=== PATIENT | male | born 1955 | race Caucasian/White ===

== ENCOUNTER 2018-03-20 05:18 | Inpatient (IN) ==
[2018-03-19 10:39] LABS: Basophils % 0.2 % (0.0-0.8); Eosinophils # 0.1 10*3/uL (0.0-0.87); Eosinophils % 1.2 % (0.00-10.9); Hematocrit 38.8 VOL% (42.0-52.0); Hemoglobin 13.5 GM/DL (14.0-18.0); Immature Granulocytes % 0.4 %; Immature Granulocytes Absolute 0.03 #; Lymphocytes # 2.5 10*3/uL (1.4-4.0); Lymphocytes % 31.4 % (21.2-54.2); Mean Corpuscular HGB Conc 34.8 GM/DL (32-36); Mean Corpuscular Hemoglobin 31 PG (27-34); Mean Corpuscular Volume 88.8 FL (87-102); Mean Platelet Volume 8.7 FL (9.6-12.0); Monocytes # 0.6 10*3/uL (0.11-0.8); Monocytes % 7.8 % (1.7-12.7); Neutrophils # 4.8 10*3/uL (1.4-7.4); Platelet Count 352 T/CUMM (130-400); Red Blood Count 4.37 MC/CUMM (3.8-5.5); Red Cell Distribution Width 12.8 % (9.3-17.3); White Blood Count 8.1 T/CUMM (4-12)
[2018-03-19 10:49] LABS: PT Patient Result 10.4 SECS; Partial Thromboplastin Time 26.1 SECS (0-40)
[2018-03-19 11:10] LABS: Apearance,Urine CLEAR (Clear); Bilirubin,Urine Negative (Negative); Blood, Urine Negative (Negative); Glucose,Urine (UA) Negative (Negative); Ketones,Urine Negative (Negative); Mucus,Urine Occasional /LPF (Occasional); Nitrite,Urine Negative (Negative); Protein,Urine Negative; RBC,Urine 1 /HPF (0-4); Urine Color Yellow (Yellow); Urine Specific Gravity 1.019 (1.001-1.035); Urine Urobilinogen < 2.0 EU/DL (0.2-1.0); WBC,Urine <1 /HPF (0-6)
[2018-03-19 11:20] LABS: Calcium 9.6 MG/DL (8.5-10.1); Osmolality,Calculated 277.4 MOS/KG (273-304); Potassium 4.6 MMOL/L (3.5-5.1)
[~2018-03-20 05:18] MED LIST: MIDAZOLAM 10 MG/2 ML VIAL ONE; PAPAVERINE 60 MG/2 ML VIAL ONE; SODIUM CHLORIDE 0.9% 1,000 ML IV PRN; SUFentanil 250 MCG/5 ML AMP ONE; TISSUE ADHESIVE 1 EACH APPLICATOR TOP ONE; VANCOMYCIN 1,000 MG VIAL ONE
[2018-03-20] MEDS ORDERED: CEFUROXIME INJ 1,500 MG in SYRINGE 1 EACH IV ONE (06:00)
[2018-03-20] MEDS ORDERED: PANTOPRAZOLE 40 MG TABLET PO ONE (06:06)
[2018-03-20] MEDS ORDERED: CEFUROXIME 1,500 MG VIAL ONE ×2 (06:07→19:31)
[2018-03-20] MEDS: LACTATED RINGERS 1,000 ML IV SCH (06:14)
[2018-03-20] MEDS ORDERED: DIAZEPAM 5 MG TABLET PO ONE (06:30)
[2018-03-20] MEDS ORDERED: NITROPRUSSIDE 50 MG/2 ML VIAL ONE (07:34)
[2018-03-20] MEDS ORDERED: CALCIUM CHLORIDE 1,000 MG/10 ML SYRINGE IV ONE (07:35)
[2018-03-20] MEDS ORDERED: POTASSIUM CHLORIDE RIDER 100 ML IV ONE (07:35)
[2018-03-20] MEDS ORDERED: PHENYLEPHRINE DRIP 40 MG/250 ML PREMIX IV ONE (07:35)
[2018-03-20] MEDS ORDERED: ALBUMIN 5% 12.5 GM/250 ML VIAL IV ONE ×2 (07:36→11:17)
[2018-03-20] MEDS ORDERED: SODIUM BICARBONATE 50 MEQ/50 ML SYRINGE IV ONE ×2 (07:36→11:16)
[2018-03-20] MEDS ORDERED: EPINEPHrine 1 MG/10 ML SYRINGE ONE (07:36)
[2018-03-20 07:38] LABS: ABG Base Excess -2.6 MMOL/L (-2.5-2.5); ABG HCO3 22.2 MMOL/L (20-26); ABG Oxygen Saturation 99.1 % (95-100); ABG PCO2 44.1 MM HG (35-48); ABG PH 7.332 (7.35-7.45); Glucose Heart Surgery 158 MG/DL (74-106); Hematocrit Heart Surgery 35.3 PERCENT (42-52); Hemoglobin Heart Surgery 11.5 G/DL (14.0-18.0); Ionized Calcium Arterial 1.17 MMOL/L (1.21-1.46); PCO2 Patient Temp Arterial 44.1 MMHG; PH Patient Temp Arterial 7.332; Patient Temperature 37 CELCIUS; Potassium Heart/CVR 4.2 MMOL/L (3.5-5.1); Sodium Heart/CVR 139 MMOL/L (135-145)
[2018-03-20 09:04] LABS: Hematocrit Heart Surgery 24.5 PERCENT (42-52); Hemoglobin Heart Surgery 7.9 G/DL (14.0-18.0); PCO2 Patient Temp Venous 31.8 MM HG; PH Patient Temp Venous 7.473; PO2 Patient Temp Venous 34.6 MM HG; Potassium Heart/CVR 5.9 MMOL/L (3.5-5.1); VBG Base Excess 0.1 MEQ/L (0-4); VBG HCO3 24.3 MEQ/L (24-28); VBG PCO2 36.7 MMHG (41-51); VBG PH 7.428; VBG PO2 42.6 MMHG (17-40)
[2018-03-20 09:33] LABS: Hematocrit Heart Surgery 27.8 PERCENT (42-52); Hemoglobin Heart Surgery 8.9 G/DL (14.0-18.0); PCO2 Patient Temp Venous 32.7 MM HG; PH Patient Temp Venous 7.46; PO2 Patient Temp Venous 35.2 MM HG; VBG Base Excess -0.1 MEQ/L (0-4); VBG HCO3 24.1 MEQ/L (24-28); VBG Oxygen Saturation 78.3 %; VBG PCO2 37.8 MMHG (41-51); VBG PH 7.416; VBG PO2 43.3 MMHG (17-40)
[2018-03-20 09:34] LABS: Potassium Heart/CVR 6.5 MMOL/L (3.5-5.1)
[2018-03-20] MEDS ORDERED: INSULIN REGULAR 100 UNIT/ML ONE (09:41)
[2018-03-20 10:07] LABS: Hemoglobin Heart Surgery 9.6 G/DL (14.0-18.0); PCO2 Patient Temp Venous 34.8 MM HG; PH Patient Temp Venous 7.45; PO2 Patient Temp Venous 41.8 MM HG; Potassium Heart/CVR 5.8 MMOL/L (3.5-5.1); VBG Base Excess -0.1 MEQ/L (0-4); VBG HCO3 23.6 MEQ/L (24-28); VBG Oxygen Saturation 71.6 %; VBG PCO2 34.8 MMHG (41-51); VBG PH 7.45; VBG PO2 41.8 MMHG (17-40)
[2018-03-20] MEDS ORDERED: THROMBIN TOPICAL (RECOMBINANT) 5,000 UNIT VIAL TOP ONE (10:10)
[2018-03-20 10:36] LABS: Hematocrit Heart Surgery 28.5 PERCENT (42-52); Hemoglobin Heart Surgery 9.2 G/DL (14.0-18.0); PH Patient Temp Venous 7.353; PO2 Patient Temp Venous 44.1 MM HG; Potassium Heart/CVR 4.4 MMOL/L (3.5-5.1); VBG Base Excess -1.6 MEQ/L (0-4); VBG HCO3 22.7 MEQ/L (24-28); VBG Oxygen Saturation 75.5 %; VBG PH 7.353; VBG PO2 44.1 MMHG (17-40)
[2018-03-20 11:13] LABS: ABG HCO3 24.4 MMOL/L (20-26); ABG Oxygen Saturation 98.4 % (95-100); ABG PCO2 38.5 MM HG (35-48); ABG PO2 218.8 MM HG (80-95); ABG TCO2 25.6 MMOL/L (23-27); Glucose Heart Surgery 239 MG/DL (74-106); Ionized Calcium Arterial 1.08 MMOL/L (1.21-1.46); PCO2 Patient Temp Arterial 38.5 MMHG; PO2 Patient Temp Arterial 218.8 MM HG; Patient Temperature 37 CELCIUS; Potassium Heart/CVR 3.4 MMOL/L (3.5-5.1); Sodium Heart/CVR 137 MMOL/L (135-145)
[2018-03-20 11:14] LABS: Apearance,Urine Clear (Clear); Bilirubin,Urine Negative (Negative); Blood, Urine Negative (Negative); Glucose,Urine (UA) Negative (Negative); Ketones,Urine Negative (Negative); Nitrite,Urine Negative (Negative); Protein,Urine Negative; Urine Color Straw (Yellow); Urine Specific Gravity 1.015 (1.001-1.035); Urine Urobilinogen 0.2 EU/DL (0.2-1.0)
[2018-03-20] MEDS ORDERED: DEXTROSE 5% KCL 20 MEQ 20 MEQ/1,000 ML BAG IV ONE (11:16)
[2018-03-20] MEDS ORDERED: HEPARIN 10,000 UNIT/10 ML VIAL ONE (11:16)
[2018-03-20] MEDS ORDERED: PROTAMINE SULFATE 250 MG/25 ML VIAL IV ONE ×2 (11:16→12:18)
[2018-03-20] MEDS ORDERED: LIDOCAINE 1% 5 ML VIAL ONE (11:16)
[2018-03-20] MEDS ORDERED: MANNITOL 12.5 GM/50 ML VIAL IV ONE (11:17)
[2018-03-20] MEDS ORDERED: PROTAMINE SULFATE 50 MG/5 ML VIAL IV ONE (11:17)
[2018-03-20] MEDS ORDERED: PHENYLEPHRINE 1 MG/10 ML SYRINGE IV ONE ×2 (11:17→12:20)
[2018-03-20] MEDS ORDERED: FUROSEMIDE 20 MG/2 ML VIAL ONE (11:17)
[2018-03-20] MEDS ORDERED: methylPREDNISolone SOD SUC 1,000 MG/8 ML VIAL ONE (11:17)
[2018-03-20] MEDS ORDERED: ONDANSETRON 4 MG/2 ML VIAL IV PRN (12:05)
[2018-03-20] MEDS ORDERED: CHLORHEXIDINE 4% SOLN 118 ML BOTTLE TOP PRN (12:05)
[2018-03-20] MEDS ORDERED: DEXTROSE 50% 25 GM/50 ML VIAL IV PRN ×2 (12:05)
[2018-03-20] MEDS ORDERED: ACETAMINOPHEN 650 MG SUPP RECTAL PRN (12:05)
[2018-03-20] MEDS ORDERED: CALCIUM CHLORIDE 1,000 MG/10 ML SYRINGE IV PRN (12:05)
[2018-03-20] MEDS ORDERED: SODIUM CHLORIDE 0.9% 250 ML IV PRN (12:05)
[2018-03-20] MEDS ORDERED: MORPHINE 10 MG/1 ML VIAL IV PRN (12:05)
[2018-03-20] MEDS ORDERED: MAGNESIUM SULF RIDER 4 GM in PREMIX 1 EACH IV PRN (12:05)
[2018-03-20] MEDS ORDERED: MIDAZOLAM 2 MG/2 ML VIAL IV PRN (12:05)
[2018-03-20] MEDS ORDERED: CALCIUM CHLORIDE 1,000 MG/10 ML VIAL IV ONE (12:18)
[2018-03-20] MEDS ORDERED: SEVOFLURANE 1 UNIT/15 MINUTE INH ONE (12:18)
[2018-03-20] MEDS ORDERED: HEPARIN/NACL 0.9% 2 UNITS/ML 500 ML IV ONE (12:18)
[2018-03-20] MEDS ORDERED: ePHEDrine 50 MG/ML AMP ONE (12:19)
[2018-03-20] MEDS ORDERED: VECURONIUM 10 MG VIAL IV ONE (12:19)
[2018-03-20] MEDS ORDERED: METOPROLOL TARTRATE 5 MG/5 ML VIAL IV ONE (12:19)
[2018-03-20] MEDS ORDERED: PHENYLEPHRINE 10 MG/1 ML VIAL IV ONE ×2 (12:19)
[2018-03-20] MEDS ORDERED: ETOMIDATE 40 MG/20 ML VIAL IV ONE (12:19)
[2018-03-20] MEDS ORDERED: AMINOCAPROIC ACID 5,000 MG/20 ML VIAL IV ONE (12:20)
[2018-03-20] MEDS ORDERED: LACTATED RINGERS 1,000 ML IV ONE (12:20)
[2018-03-20] MEDS ORDERED: SODIUM CHLORIDE 0.9% 1,000 ML IV ONE (12:20)
[2018-03-20] MEDS ORDERED: NITROGLYCERIN DRIP 50 MG/250 ML BOTTLE IV ONE (12:20)
[2018-03-20 12:40] LABS: ABG Base Excess 1.2 MMOL/L (-2.5-2.5); ABG HCO3 25.4 MMOL/L (20-26); ABG Oxygen Saturation 97.5 % (95-100); ABG PCO2 40.6 MM HG (35-48); ABG PH 7.412 (7.35-7.45); ABG PO2 98.6 MM HG (80-95); ABG TCO2 23.5 MMOL/L (23-27); Glucose Heart Surgery 241 MG/DL (74-106); Hematocrit Heart Surgery 30.2 PERCENT (42-52); Hemoglobin Heart Surgery 9.7 G/DL (14.0-18.0); Potassium Heart/CVR 3.7 MMOL/L (3.5-5.1)
[2018-03-20 12:45] LABS: Eosinophils % 0.1 % (0.00-10.9); Hematocrit 28.1 VOL% (42.0-52.0); Immature Granulocytes % 0.6 %; Immature Granulocytes Absolute 0.06 #; Lymphocytes # 0.9 10*3/uL (1.4-4.0); Lymphocytes % 9.5 % (21.2-54.2); Mean Corpuscular HGB Conc 34.5 GM/DL (32-36); Mean Corpuscular Hemoglobin 31 PG (27-34); Mean Corpuscular Volume 90.9 FL (87-102); Monocytes # 0.4 10*3/uL (0.11-0.8); Monocytes % 4.2 % (1.7-12.7); Neutrophils # 8.4 10*3/uL (1.4-7.4); Neutrophils % 85.6 % (38.7-73.9); Red Cell Distribution Width 12.7 % (9.3-17.3); White Blood Count 9.8 T/CUMM (4-12)
[2018-03-20 12:47] LABS: Hemoglobin 9.7 GM/DL (14.0-18.0); Platelet Count 224 T/CUMM (130-400); Red Blood Count 3.09 MC/CUMM (3.8-5.5)
[2018-03-20 12:51] LABS: INR 1.1; PT Patient Result 11.8 SECS; Partial Thromboplastin Time 28.6 SECS (0-40)
[2018-03-20 13:02] LABS: Blood Urea Nitrogen 14 MG/DL (7-18); Calcium 7.8 MG/DL (8.5-10.1); Glucose 233 MG/DL (74-106); Potassium 3.8 MMOL/L (3.5-5.1); Sodium 143 MMOL/L (136-145)
[2018-03-20 13:07] LABS: Lactic Acid 2.8 MMOL/L (0.4-2.0)
[2018-03-20] MEDS: SODIUM CHLORIDE 0.45% 1,000 ML IV SCH ×2 (13:09→13:10)
[2018-03-20] MEDS: INSULIN REGULAR DRIP 100 ML IV SCH ×2 (13:28→22:01)
[2018-03-20] MEDS: POTASSIUM CHLORIDE RIDER 20 MEQ in PREMIX 1 EACH IV PRN (13:31)
[2018-03-20] MEDS: ALBUMIN 5% 12.5 GM in PREMIX 1 EACH IV PRN ×2 (13:36→14:30)
[2018-03-20] MEDS: INSULIN REGULAR 100 UNIT/ML IV PRN ×3 (14:14→22:02)
[2018-03-20] MEDS: POTASSIUM CHLORIDE RIDER 10 MEQ in PREMIX 1 EACH IV PRN (14:30)
[2018-03-20] MEDS: INSULIN GLARGINE 100 UNIT/ML SUBCUT SCH (15:18)
[2018-03-20] MEDS ORDERED: PHENYLEPHRINE DRIP 40 MG/250 ML PREMIX IV PRN (15:56)
[2018-03-20] MEDS ORDERED: SODIUM CHLORIDE 0.9% 1,000 ML IV PRN ×2 (15:59→18:11)
[2018-03-20] MEDS ORDERED: ASPIRIN 325 MG TABLET PO ONE (16:17)
[2018-03-20] MEDS ORDERED: CALCIUM GLUCONATE 1,000 MG in SODIUM CHLORIDE 0.9% 100 ML IV ONE (16:17)
[2018-03-20 16:41] LABS: ABG Base Excess -2.9 MMOL/L (-2.5-2.5); ABG PCO2 42.2 MM HG (35-48); ABG PH 7.338 (7.35-7.45); ABG TCO2 21.3 MMOL/L (23-27); Glucose Heart Surgery 188 MG/DL (74-106); Hematocrit Heart Surgery 24.4 PERCENT (42-52); Hemoglobin Heart Surgery 7.8 G/DL (14.0-18.0); Potassium Heart/CVR 3.5 MMOL/L (3.5-5.1)
[2018-03-20] MEDS: MORPHINE 4 MG/1 ML VIAL IV PRN ×2 (17:06→19:41)
[2018-03-20 18:04] LABS: Lactic Acid 3.4 MMOL/L (0.4-2.0)
[2018-03-20] MEDS ORDERED: VANCOMYCIN 1,000 MG VIAL ONE (19:31)
[2018-03-20] MEDS ORDERED: TISSUE ADHESIVE 1 EACH APPLICATOR TOP ONE (19:31)
[2018-03-20] MEDS ORDERED: SUFentanil 250 MCG/5 ML AMP ONE (20:03)
[2018-03-20] MEDS: CHLORHEXIDINE 0.12% ORAL RINSE 60 ML BOTTLE SWISH/SPIT SCH (20:09)
[2018-03-20 20:44] LABS: Hematocrit 22.6 VOL% (42.0-52.0); Hemoglobin 7.8 GM/DL (14.0-18.0)
[2018-03-20 20:50] LABS: ABG Base Excess -1.8 MMOL/L (-2.5-2.5); ABG HCO3 22.9 MMOL/L (20-26); ABG Oxygen Saturation 98.7 % (95-100); ABG PCO2 37.5 MM HG (35-48); ABG PH 7.393 (7.35-7.45); ABG TCO2 21.3 MMOL/L (23-27); Glucose Heart Surgery 169 MG/DL (74-106); Potassium Heart/CVR 3.8 MMOL/L (3.5-5.1)
[2018-03-20] MEDS: CEFUROXIME INJ 1,500 MG in SYRINGE 1 EACH IV SCH (21:31)
[2018-03-20 23:14] LABS: Hematocrit 23.9 VOL% (42.0-52.0); Hemoglobin 8.5 GM/DL (14.0-18.0)
[2018-03-21] MEDS: SODIUM CHLORIDE 0.45% 1,000 ML IV SCH ×3 (01:09→08:39)
[2018-03-21] MEDS: MORPHINE 4 MG/1 ML VIAL IV PRN ×3 (01:22→17:49)
[2018-03-21] MEDS ORDERED: diphenhydrAMINE 50 MG/1 ML VIAL IV ONE (02:00)
[2018-03-21 04:14] LABS: ABG PH 7.419 (7.35-7.45)
[2018-03-21 04:15] LABS: ABG Base Excess -0.3 MMOL/L (-2.5-2.5); ABG HCO3 24.2 MMOL/L (20-26); ABG Oxygen Saturation 96.4 % (95-100); ABG PO2 77.9 MM HG (80-95); ABG TCO2 21.8 MMOL/L (23-27)
[2018-03-21 04:26] LABS: Basophils % 0.1 % (0.0-0.8); Hematocrit 27.6 VOL% (42.0-52.0); Hemoglobin 9.7 GM/DL (14.0-18.0); Immature Granulocytes % 0.3 %; Immature Granulocytes Absolute 0.03 #; Lymphocytes # 0.5 10*3/uL (1.4-4.0); Lymphocytes % 4.5 % (21.2-54.2); Mean Corpuscular HGB Conc 35.1 GM/DL (32-36); Mean Corpuscular Hemoglobin 31 PG (27-34); Mean Corpuscular Volume 87.6 FL (87-102); Mean Platelet Volume 9.6 FL (9.6-12.0); Monocytes % 10.1 % (1.7-12.7); Neutrophils # 8.8 10*3/uL (1.4-7.4); Platelet Count 226 T/CUMM (130-400); Red Blood Count 3.15 MC/CUMM (3.8-5.5); Red Cell Distribution Width 14.1 % (9.3-17.3); White Blood Count 10.3 T/CUMM (4-12)
[2018-03-21 04:53] LABS: Band Neutrophils 5 % (0-10); Lymphocytes 7 % (20-55); Platelet Estimate Normal; Segmented Neutrophils 84 % (50-85); Total Cells Counted 100
[2018-03-21 04:54] LABS: Calcium 7.9 MG/DL (8.5-10.1); Potassium 3.7 MMOL/L (3.5-5.1)
[2018-03-21] MEDS: INSULIN REGULAR DRIP 100 ML IV SCH (05:07)
[2018-03-21] MEDS: POTASSIUM CHLORIDE RIDER 10 MEQ in PREMIX 1 EACH IV PRN (05:48)
[2018-03-21] MEDS ORDERED: FUROSEMIDE 40 MG/4 ML VIAL IV ONE (06:00)
[2018-03-21] MEDS: POTASSIUM CHLORIDE RIDER 20 MEQ in PREMIX 1 EACH IV PRN (06:23)
[2018-03-21] MEDS: MAGNESIUM SULF RIDER 2 GM in PREMIX 1 EACH IV PRN ×2 (06:29→08:37)
[2018-03-21] MEDS: LACTATED RINGERS 1,000 ML IV SCH (07:03)
[2018-03-21] MEDS: INSULIN REGULAR 100 UNIT/ML SUBCUT SCH ×4 (08:11→21:32)
[2018-03-21] MEDS: PANTOPRAZOLE 40 MG VIAL IV SCH (09:21)
[2018-03-21] MEDS: INSULIN GLARGINE 100 UNIT/ML SUBCUT SCH (09:21)
[2018-03-21] MEDS: CEFUROXIME INJ 1,500 MG in SYRINGE 1 EACH IV SCH ×2 (09:21→21:38)
[2018-03-21] MEDS: CHLORHEXIDINE 0.12% ORAL RINSE 60 ML BOTTLE SWISH/SPIT SCH ×2 (09:22→21:38)
[2018-03-21] MEDS: METOPROLOL TARTRATE 25 MG TABLET PO SCH ×2 (11:21→21:32)
[2018-03-21] MEDS: ATORVASTATIN 40 MG TABLET PO SCH ×2 (11:21→21:32)
[2018-03-21] MEDS: FUROSEMIDE 40 MG TABLET PO SCH (11:21)
[2018-03-21] MEDS: ASPIRIN EC 325 MG TABLET PO SCH (11:21)
[2018-03-21] MEDS ORDERED: INSULIN GLARGINE 100 UNIT/ML SUBCUT SCH (14:43)
[2018-03-21] MEDS ORDERED: ALBUTEROL 2.5 MG/3 ML NEB RESP TX PRN (20:42)
[2018-03-22] MEDS ORDERED: LEVALBUTEROL 1.25 MG/3 ML NEB RESP TX PRN (00:25)
[2018-03-22] MEDS: MORPHINE 4 MG/1 ML VIAL IV PRN (04:02)
[2018-03-22 05:27] LABS: Basophils % 0.1 % (0.0-0.8); Hematocrit 30.2 VOL% (42.0-52.0); Hemoglobin 10.2 GM/DL (14.0-18.0); Immature Granulocytes % 0.9 %; Immature Granulocytes Absolute 0.16 #; Lymphocytes # 1.4 10*3/uL (1.4-4.0); Lymphocytes % 8.5 % (21.2-54.2); Mean Corpuscular HGB Conc 33.8 GM/DL (32-36); Mean Corpuscular Hemoglobin 31 PG (27-34); Mean Corpuscular Volume 90.7 FL (87-102); Mean Platelet Volume 9.5 FL (9.6-12.0); Monocytes # 1.3 10*3/uL (0.11-0.8); Monocytes % 7.8 % (1.7-12.7); Neutrophils # 13.9 10*3/uL (1.4-7.4); Neutrophils % 82.7 % (38.7-73.9); Platelet Count 242 T/CUMM (130-400); Red Blood Count 3.33 MC/CUMM (3.8-5.5); Red Cell Distribution Width 14.6 % (9.3-17.3); White Blood Count 16.9 T/CUMM (4-12)
[2018-03-22 05:42] LABS: Calcium 8.5 MG/DL (8.5-10.1); Potassium 4.6 MMOL/L (3.5-5.1)
[2018-03-22] MEDS: PANTOPRAZOLE 40 MG VIAL IV SCH (08:23)
[2018-03-22] MEDS: ASPIRIN EC 325 MG TABLET PO SCH (08:24)
[2018-03-22] MEDS: INSULIN REGULAR 100 UNIT/ML SUBCUT SCH ×4 (08:24→21:22)
[2018-03-22] MEDS: METOPROLOL TARTRATE 25 MG TABLET PO SCH ×2 (08:24→21:23)
[2018-03-22] MEDS: FUROSEMIDE 40 MG TABLET PO SCH (08:24)
[2018-03-22] MEDS: CHLORHEXIDINE 0.12% ORAL RINSE 60 ML BOTTLE SWISH/SPIT SCH ×2 (08:32→21:23)
[2018-03-22] MEDS ORDERED: Liraglutide [Victoza 2-Pak] 0.6 MG SQ SCH (09:00)
[2018-03-22] MEDS ORDERED: FUROSEMIDE 40 MG/4 ML VIAL IV STA (09:55)
[2018-03-22] MEDS: ATORVASTATIN 40 MG TABLET PO SCH (21:23)
[2018-03-23 04:28] LABS: Basophils % 0.1 % (0.0-0.8); Eosinophils % 0.3 % (0.00-10.9); Hematocrit 32.7 VOL% (42.0-52.0); Hemoglobin 10.9 GM/DL (14.0-18.0); Immature Granulocytes % 0.8 %; Immature Granulocytes Absolute 0.13 #; Lymphocytes # 2.4 10*3/uL (1.4-4.0); Mean Corpuscular HGB Conc 33.3 GM/DL (32-36); Mean Corpuscular Hemoglobin 30 PG (27-34); Mean Corpuscular Volume 91.3 FL (87-102); Mean Platelet Volume 9.4 FL (9.6-12.0); Monocytes # 1.1 10*3/uL (0.11-0.8); Monocytes % 6.9 % (1.7-12.7); Neutrophils # 12.1 10*3/uL (1.4-7.4); Neutrophils % 76.9 % (38.7-73.9); Platelet Count 253 T/CUMM (130-400); Red Blood Count 3.58 MC/CUMM (3.8-5.5); Red Cell Distribution Width 13.7 % (9.3-17.3); White Blood Count 15.7 T/CUMM (4-12)
[2018-03-23 04:45] LABS: Calcium 9.1 MG/DL (8.5-10.1); Osmolality,Calculated 278.8 MOS/KG (273-304); Potassium 4.2 MMOL/L (3.5-5.1)
[2018-03-23 06:35] LABS: Hypochromasia 1+; Lymphocytes 10 % (20-55); Platelet Estimate Adequate; Segmented Neutrophils 83 % (50-85); Total Cells Counted 100
[2018-03-23] MEDS: METOPROLOL TARTRATE 25 MG TABLET PO SCH ×2 (08:52→21:02)
[2018-03-23] MEDS: FUROSEMIDE 40 MG TABLET PO SCH (08:52)
[2018-03-23] MEDS: ASPIRIN EC 325 MG TABLET PO SCH (08:52)
[2018-03-23] MEDS: LISINOPRIL 2.5 MG TABLET PO SCH (08:52)
[2018-03-23] MEDS: PANTOPRAZOLE 40 MG VIAL IV SCH (08:53)
[2018-03-23] MEDS: INSULIN GLARGINE 100 UNIT/ML SUBCUT SCH (09:21)
[2018-03-23] MEDS: CHLORHEXIDINE 0.12% ORAL RINSE 60 ML BOTTLE SWISH/SPIT SCH ×2 (09:22→21:07)
[2018-03-23] MEDS: INSULIN REGULAR 100 UNIT/ML SUBCUT SCH ×4 (10:19→21:01)
[2018-03-23] MEDS ORDERED: BISACODYL 5 MG TABLET PO PRN (11:02)
[2018-03-23] MEDS: DOCUSATE SODIUM 100 MG CAPSULE PO SCH (14:04)
[2018-03-23] MEDS: ATORVASTATIN 40 MG TABLET PO SCH (21:02)
[2018-03-24 05:18] LABS: Basophils % 0.1 % (0.0-0.8); Eosinophils # 0.1 10*3/uL (0.0-0.87); Hematocrit 32.9 VOL% (42.0-52.0); Immature Granulocytes % 1.3 %; Immature Granulocytes Absolute 0.18 #; Lymphocytes # 2.6 10*3/uL (1.4-4.0); Lymphocytes % 19.1 % (21.2-54.2); Mean Corpuscular HGB Conc 33.4 GM/DL (32-36); Mean Corpuscular Hemoglobin 30 PG (27-34); Mean Corpuscular Volume 90.6 FL (87-102); Mean Platelet Volume 9.4 FL (9.6-12.0); Monocytes % 7.5 % (1.7-12.7); Neutrophils # 9.6 10*3/uL (1.4-7.4); Platelet Count 315 T/CUMM (130-400); Red Blood Count 3.63 MC/CUMM (3.8-5.5); Red Cell Distribution Width 13.4 % (9.3-17.3); White Blood Count 13.5 T/CUMM (4-12)
[2018-03-24 05:36] LABS: Calcium 8.6 MG/DL (8.5-10.1); Osmolality,Calculated 285.4 MOS/KG (273-304); Potassium 3.7 MMOL/L (3.5-5.1)
[2018-03-24] MEDS: LISINOPRIL 2.5 MG TABLET PO SCH (08:31)
[2018-03-24] MEDS: METOPROLOL TARTRATE 25 MG TABLET PO SCH ×2 (08:31→20:48)
[2018-03-24] MEDS: DOCUSATE SODIUM 100 MG CAPSULE PO SCH (08:31)
[2018-03-24] MEDS: INSULIN GLARGINE 100 UNIT/ML SUBCUT SCH (08:31)
[2018-03-24] MEDS: FUROSEMIDE 40 MG TABLET PO SCH (08:31)
[2018-03-24] MEDS: ASPIRIN EC 325 MG TABLET PO SCH (08:31)
[2018-03-24] MEDS: PANTOPRAZOLE 40 MG VIAL IV SCH (08:32)
[2018-03-24] MEDS: INSULIN REGULAR 100 UNIT/ML SUBCUT SCH ×4 (08:40→21:00)
[2018-03-24] MEDS: CHLORHEXIDINE 0.12% ORAL RINSE 60 ML BOTTLE SWISH/SPIT SCH ×2 (08:40→20:49)
[2018-03-24] MEDS: ATORVASTATIN 40 MG TABLET PO SCH (20:48)
[2018-03-25 05:09] LABS: Calcium 8.8 MG/DL (8.5-10.1); Osmolality,Calculated 280.7 MOS/KG (273-304); Potassium 3.8 MMOL/L (3.5-5.1)
[2018-03-25] MEDS: FUROSEMIDE 40 MG TABLET PO SCH (08:56)
[2018-03-25] MEDS: INSULIN REGULAR 100 UNIT/ML SUBCUT SCH (08:57)
[2018-03-25] MEDS: LISINOPRIL 2.5 MG TABLET PO SCH (08:57)
[2018-03-25] MEDS: DOCUSATE SODIUM 100 MG CAPSULE PO SCH (08:57)
[2018-03-25] MEDS: ASPIRIN EC 325 MG TABLET PO SCH (08:57)
[2018-03-25] MEDS: INSULIN GLARGINE 100 UNIT/ML SUBCUT SCH (08:57)
[2018-03-25] MEDS: METOPROLOL TARTRATE 25 MG TABLET PO SCH (08:57)
[2018-03-25] MEDS: PANTOPRAZOLE 40 MG VIAL IV SCH (08:58)
[2018-03-25] MEDS: CHLORHEXIDINE 0.12% ORAL RINSE 60 ML BOTTLE SWISH/SPIT SCH (08:58)
[2018-03-25 12:25] VITALS: BP 115/68
== END 2018-03-25 14:29 | disposition home health service (06) | DRG 236 ==
LOC: N.SDSINP 05:18 → N.CVR 08:01 → N.TELES 03-21 13:45
PROVIDERS: ADMIT Thoracic Surgery (Cardiothoracic Vascular Surgery); ATTEND Thoracic Surgery (Cardiothoracic Vascular Surgery)

== ENCOUNTER 2018-04-19 13:42 | Inpatient (IN) ==
[2018-04-19] MEDS ORDERED: ASPIRIN 325 MG TABLET PO STA (14:39)
[2018-04-19 15:02] LABS: Basophils % 0.2 % (0.0-0.8); Eosinophils # 0.2 10*3/uL (0.0-0.87); Eosinophils % 2.5 % (0.00-10.9); Hematocrit 34.1 VOL% (42.0-52.0); Hemoglobin 11.6 GM/DL (14.0-18.0); Immature Granulocytes % 0.5 %; Immature Granulocytes Absolute 0.04 #; Lymphocytes # 2.2 10*3/uL (1.4-4.0); Mean Corpuscular Hemoglobin 30 PG (27-34); Mean Platelet Volume 8.4 FL (9.6-12.0); Monocytes # 0.6 10*3/uL (0.11-0.8); Monocytes % 7.2 % (1.7-12.7); Neutrophils # 5.7 10*3/uL (1.4-7.4); Neutrophils % 64.6 % (38.7-73.9); Platelet Count 417 T/CUMM (130-400); Red Blood Count 3.83 MC/CUMM (3.8-5.5); Red Cell Distribution Width 13.9 % (9.3-17.3); White Blood Count 8.9 T/CUMM (4-12)
[2018-04-19 15:47] LABS: Albumin 3.1 G/DL (3.4-5.0); Bilirubin,Total 0.5 MG/DL (0.2-1.0); Calcium 9.1 MG/DL (8.5-10.1); Osmolality,Calculated 285.1 MOS/KG (273-304); Potassium 3.8 MMOL/L (3.5-5.1); Total Protein 7.5 G/DL (6.4-8.3)
[2018-04-19] MEDS ORDERED: ONDANSETRON 4 MG/2 ML VIAL IV PRN (15:54)
[2018-04-19] MEDS ORDERED: MAGNESIUM SULF RIDER 4 GM in PREMIX 1 EACH IV PRN (15:54)
[2018-04-19] MEDS ORDERED: GLUCAGON 1 MG VIAL IM PRN (15:54)
[2018-04-19] MEDS ORDERED: MAGNESIUM SULF RIDER 2 GM in PREMIX 1 EACH IV PRN (15:54)
[2018-04-19] MEDS ORDERED: MORPHINE 4 MG/1 ML VIAL IV PRN (15:54)
[2018-04-19] MEDS ORDERED: DEXTROSE 50% 25 GM/50 ML VIAL IV PRN (15:54)
[2018-04-19] MEDS ORDERED: ZALEPLON 5 MG CAPSULE PO PRN (15:54)
[2018-04-19] MEDS ORDERED: NITROGLYCERIN SL 0.4 MG TABLET SL PRN (15:57)
[2018-04-19] MEDS ORDERED: SODIUM CHLORIDE 0.45% 1,000 ML IV SCH (16:00)
[2018-04-19] MEDS ORDERED: PNEUMOCOCCAL VACCINE (23 VALENT) 0.5 ML VIAL IM ONE (17:55)
[2018-04-19] MEDS: INSULIN LISPRO 100 UNIT/ML SUBCUT SCH ×2 (18:06→20:57)
[2018-04-19] MEDS ORDERED: ENOXAPARIN 40 MG/0.4 ML SYRINGE ONE (18:17)
[2018-04-19] MEDS: ENOXAPARIN 40 MG/0.4 ML SYRINGE SUBCUT SCH ×3 (18:24→20:59)
[2018-04-19] MEDS ORDERED: traMADol 50 MG TABLET PO PRN (19:45)
[2018-04-19] MEDS: LEVOFLOXACIN INJ 500 MG in PREMIX 1 EACH IV SCH (20:54)
[2018-04-19] MEDS: METOPROLOL TARTRATE 25 MG TABLET PO SCH (20:55)
[2018-04-20 05:08] LABS: Basophils % 0.4 % (0.0-0.8); Eosinophils # 0.2 10*3/uL (0.0-0.87); Eosinophils % 2.9 % (0.00-10.9); Hematocrit 30.6 VOL% (42.0-52.0); Hemoglobin 10.5 GM/DL (14.0-18.0); Immature Granulocytes % 0.4 %; Immature Granulocytes Absolute 0.03 #; Lymphocytes # 2.1 10*3/uL (1.4-4.0); Lymphocytes % 29.1 % (21.2-54.2); Mean Corpuscular HGB Conc 34.3 GM/DL (32-36); Mean Corpuscular Hemoglobin 31 PG (27-34); Mean Platelet Volume 8.6 FL (9.6-12.0); Monocytes # 0.5 10*3/uL (0.11-0.8); Monocytes % 7.4 % (1.7-12.7); Neutrophils # 4.3 10*3/uL (1.4-7.4); Neutrophils % 59.8 % (38.7-73.9); Platelet Count 338 T/CUMM (130-400); Red Blood Count 3.44 MC/CUMM (3.8-5.5); Red Cell Distribution Width 13.9 % (9.3-17.3); White Blood Count 7.3 T/CUMM (4-12)
[2018-04-20 05:27] LABS: Calcium 8.6 MG/DL (8.5-10.1); Osmolality,Calculated 283.1 MOS/KG (273-304); Potassium 3.7 MMOL/L (3.5-5.1); Risk Ratio 5.7; VLDL CHOLESTEROL 53.2 MG/DL
[2018-04-20] MEDS: INSULIN LISPRO 100 UNIT/ML SUBCUT SCH ×4 (07:35→21:41)
[2018-04-20] MEDS: METOPROLOL TARTRATE 25 MG TABLET PO SCH ×2 (09:00→21:40)
[2018-04-20] MEDS: ASPIRIN EC 325 MG TABLET PO SCH (09:00)
[2018-04-20] MEDS ORDERED: Liraglutide [Victoza 2-Pak] 0.6 MG SQ SCH (09:00)
[2018-04-20 09:09] LABS: Troponin I < 0.015 NG/ML (0.00-0.045)
[2018-04-20] MEDS ORDERED: FUROSEMIDE 40 MG/4 ML VIAL IV ONE (09:30)
[2018-04-20] MEDS ORDERED: NITROGLYCERIN 2% OINT 1 INCH/GM PACK TOP SCH (12:00)
[2018-04-20 14:16] LABS: ABG HCO3 25.4 MMOL/L (20-26); ABG PCO2 30.4 MM HG (35-48); ABG PH 7.496 (7.35-7.45); ABG TCO2 20.6 MMOL/L (23-27)
[2018-04-20] MEDS: ALBUTEROL 0.63 MG/3 ML NEB RESP TX SCH ×2 (14:23→19:05)
[2018-04-20] MEDS: ENOXAPARIN 40 MG/0.4 ML SYRINGE SUBCUT SCH (21:40)
[2018-04-20] MEDS: LEVOFLOXACIN INJ 500 MG in PREMIX 1 EACH IV SCH (21:40)
[2018-04-21] MEDS: ALBUTEROL 0.63 MG/3 ML NEB RESP TX SCH ×3 (00:56→19:28)
[2018-04-21 05:17] LABS: Basophils % 0.4 % (0.0-0.8); Eosinophils # 0.2 10*3/uL (0.0-0.87); Eosinophils % 2.3 % (0.00-10.9); Hematocrit 31.4 VOL% (42.0-52.0); Hemoglobin 10.7 GM/DL (14.0-18.0); Immature Granulocytes % 0.4 %; Immature Granulocytes Absolute 0.03 #; Lymphocytes # 2.2 10*3/uL (1.4-4.0); Lymphocytes % 31.5 % (21.2-54.2); Mean Corpuscular HGB Conc 34.1 GM/DL (32-36); Mean Corpuscular Hemoglobin 30 PG (27-34); Mean Corpuscular Volume 88.7 FL (87-102); Mean Platelet Volume 8.5 FL (9.6-12.0); Monocytes # 0.6 10*3/uL (0.11-0.8); Monocytes % 7.8 % (1.7-12.7); Neutrophils # 4.1 10*3/uL (1.4-7.4); Neutrophils % 57.6 % (38.7-73.9); Platelet Count 342 T/CUMM (130-400); Red Blood Count 3.54 MC/CUMM (3.8-5.5); Red Cell Distribution Width 13.7 % (9.3-17.3); White Blood Count 7.1 T/CUMM (4-12)
[2018-04-21 05:44] LABS: Calcium 8.7 MG/DL (8.5-10.1); Osmolality,Calculated 284.3 MOS/KG (273-304); Potassium 3.6 MMOL/L (3.5-5.1)
[2018-04-21] MEDS: INSULIN LISPRO 100 UNIT/ML SUBCUT SCH ×4 (09:34→21:54)
[2018-04-21] MEDS: ASPIRIN EC 325 MG TABLET PO SCH (09:35)
[2018-04-21] MEDS: METOPROLOL TARTRATE 25 MG TABLET PO SCH ×2 (09:43→21:53)
[2018-04-21] MEDS: POTASSIUM CHLORIDE 20 MEQ TABLET PO PRN ×2 (16:12→17:53)
[2018-04-21 18:48] LABS: Eosinophils,Pleural Fluid 1 %; Lymphocytes,Pleural Fluid 66 %; Monocytes,Pleural Fluid 1 %; Neutrophils,Pleural Fluid 32 %
[2018-04-21 18:50] LABS: RBC,Pleural Fluid 800 T/CUMM
[2018-04-21] MEDS: LEVOFLOXACIN INJ 500 MG in PREMIX 1 EACH IV SCH (21:53)
[2018-04-21] MEDS: ENOXAPARIN 40 MG/0.4 ML SYRINGE SUBCUT SCH (21:53)
[2018-04-22] MEDS: ALBUTEROL 0.63 MG/3 ML NEB RESP TX SCH ×5 (00:50→19:34)
[2018-04-22 04:22] LABS: Basophils % 0.4 % (0.0-0.8); Eosinophils # 0.1 10*3/uL (0.0-0.87); Eosinophils % 1.2 % (0.00-10.9); Hematocrit 33.3 VOL% (42.0-52.0); Immature Granulocytes % 0.5 %; Immature Granulocytes Absolute 0.04 #; Lymphocytes # 2.3 10*3/uL (1.4-4.0); Lymphocytes % 27.4 % (21.2-54.2); Mean Corpuscular Hemoglobin 30 PG (27-34); Mean Corpuscular Volume 89.5 FL (87-102); Mean Platelet Volume 8.7 FL (9.6-12.0); Monocytes # 0.7 10*3/uL (0.11-0.8); Monocytes % 8.1 % (1.7-12.7); Neutrophils # 5.2 10*3/uL (1.4-7.4); Neutrophils % 62.4 % (38.7-73.9); Platelet Count 346 T/CUMM (130-400); Red Blood Count 3.72 MC/CUMM (3.8-5.5); White Blood Count 8.3 T/CUMM (4-12)
[2018-04-22 04:25] LABS: Calcium 8.8 MG/DL (8.5-10.1); Osmolality,Calculated 275.8 MOS/KG (273-304); Potassium 4.1 MMOL/L (3.5-5.1)
[2018-04-22] MEDS: INSULIN LISPRO 100 UNIT/ML SUBCUT SCH ×4 (10:48→21:11)
[2018-04-22] MEDS ORDERED: MAGNESIUM SULF RIDER 2 GM in PREMIX 1 EACH IV ONE (12:00)
[2018-04-22] MEDS: ASPIRIN EC 325 MG TABLET PO SCH (14:07)
[2018-04-22] MEDS: METOPROLOL TARTRATE 25 MG TABLET PO SCH ×2 (14:07→21:09)
[2018-04-22] MEDS: LEVOFLOXACIN INJ 500 MG in PREMIX 1 EACH IV SCH (21:10)
[2018-04-22] MEDS: ENOXAPARIN 40 MG/0.4 ML SYRINGE SUBCUT SCH (21:10)
[2018-04-23] MEDS: ALBUTEROL 0.63 MG/3 ML NEB RESP TX SCH ×3 (00:23→13:57)
[2018-04-23 04:36] LABS: Basophils % 0.3 % (0.0-0.8); Eosinophils # 0.1 10*3/uL (0.0-0.87); Eosinophils % 1.4 % (0.00-10.9); Hematocrit 31.3 VOL% (42.0-52.0); Hemoglobin 10.4 GM/DL (14.0-18.0); Immature Granulocytes % 0.3 %; Immature Granulocytes Absolute 0.02 #; Lymphocytes % 26.9 % (21.2-54.2); Mean Corpuscular HGB Conc 33.2 GM/DL (32-36); Mean Corpuscular Hemoglobin 30 PG (27-34); Mean Corpuscular Volume 89.2 FL (87-102); Mean Platelet Volume 8.8 FL (9.6-12.0); Monocytes # 0.6 10*3/uL (0.11-0.8); Monocytes % 7.5 % (1.7-12.7); Neutrophils # 4.6 10*3/uL (1.4-7.4); Neutrophils % 63.6 % (38.7-73.9); Platelet Count 336 T/CUMM (130-400); Red Blood Count 3.51 MC/CUMM (3.8-5.5); Red Cell Distribution Width 13.9 % (9.3-17.3); White Blood Count 7.3 T/CUMM (4-12)
[2018-04-23 05:07] LABS: Calcium 8.5 MG/DL (8.5-10.1); Osmolality,Calculated 277.5 MOS/KG (273-304); Potassium 3.9 MMOL/L (3.5-5.1)
[2018-04-23] MEDS ORDERED: BISACODYL 5 MG TABLET PO ONE (07:08)
[2018-04-23] MEDS: INSULIN LISPRO 100 UNIT/ML SUBCUT SCH ×3 (08:59→16:08)
[2018-04-23] MEDS: METOPROLOL TARTRATE 25 MG TABLET PO SCH (09:00)
[2018-04-23] MEDS: ASPIRIN EC 325 MG TABLET PO SCH (09:00)
[2018-04-23 16:38] VITALS: BP 105/62
== END 2018-04-23 18:15 | disposition home or self-care (01) | DRG 188 ==
LOC: N.ED 13:42 → N.EDINP 17:11 → N.TELES 17:35
PROVIDERS: ADMIT Family Medicine; ATTEND Family Medicine

== ENCOUNTER 2019-02-12 09:08 | Inpatient (IN) ==
[2019-02-12 10:07] LABS: Basophils % 0.2 % (0.0-0.8); Hematocrit 41.5 VOL% (42.0-52.0); Hemoglobin 13.7 GM/DL (14.0-18.0); Immature Granulocytes % 1.2 %; Immature Granulocytes Absolute 0.23 #; Lymphocytes # 0.5 10*3/uL (1.4-4.0); Lymphocytes % 2.5 % (21.2-54.2); Mean Corpuscular Volume 92.2 FL (87-102); Mean Platelet Volume 8.9 FL (9.6-12.0); Monocytes % 5.6 % (1.7-12.7); Neutrophils % 90.5 % (38.7-73.9); Platelet Count 279 T/CUMM (130-400); Red Cell Distribution Width 13.1 % (9.3-17.3); White Blood Count 19.6 T/CUMM (4-12)
[2019-02-12 10:32] LABS: Apearance,Urine CLEAR (Clear); Bilirubin,Urine Negative (Negative); Blood, Urine Negative (Negative); Glucose,Urine (UA) Negative (Negative); Ketones,Urine Negative (Negative); Mucus,Urine Occasional /LPF (Occasional); Nitrite,Urine Negative (Negative); Protein,Urine Negative; RBC,Urine 1 /HPF (0-4); Urine Color Yellow (Yellow); Urine Specific Gravity 1.019 (1.001-1.035); Urine Urobilinogen < 2.0 EU/DL (0.2-1.0)
[2019-02-12 10:33] LABS: Anisocytosis Slight; Macrocytosis Slight; Microcytosis Slight; Platelet Estimate Normal; Polychromasia Slight; Segmented Neutrophils 93 % (50-85); Total Cells Counted 100
[2019-02-12 10:38] LABS: Alanine Aminotransferase 60 U/L (16-61); Albumin 4.1 G/DL (3.4-5.0); Alkaline Phosphatase 38 U/L (45-117); Aspartate Amino Transferase 34 U/L (0-37); Blood Urea Nitrogen 16 MG/DL (7-18); Calcium 9.5 MG/DL (8.5-10.1); Glucose 167 MG/DL (74-106); Osmolality,Calculated 281.5 MOS/KG (273-304); Total Protein 7.5 G/DL (6.4-8.3)
[2019-02-12] MEDS ORDERED: SODIUM CHLORIDE 0.9% 1,000 ML IV STA (11:34)
[2019-02-12] MEDS ORDERED: VANCOMYCIN INJ 1,000 MG in SODIUM CHLORIDE 0.9% 250 ML IV STA (11:34)
[2019-02-12] MEDS ORDERED: MEROPENEM 1,000 MG in SODIUM CHLORIDE 0.9% 100 ML IV STA ×2 (11:49→11:53)
[2019-02-12] MEDS ORDERED: GLUCAGON 1 MG VIAL IM PRN (12:13)
[2019-02-12] MEDS ORDERED: ONDANSETRON 4 MG/2 ML VIAL IV PRN (12:13)
[2019-02-12] MEDS ORDERED: DEXTROSE 50% 25 GM/50 ML VIAL IV PRN (12:13)
[2019-02-12] MEDS ORDERED: NITROGLYCERIN SL 0.4 MG TABLET SL PRN (12:16)
[2019-02-12] MEDS ORDERED: traMADol 50 MG TABLET PO PRN (12:16)
[2019-02-12] MEDS ORDERED: MEROPENEM 1,000 MG in SODIUM CHLORIDE 0.9% 100 ML IV SCH (13:48)
[2019-02-12] MEDS: SODIUM CHLORIDE 0.9% 1,000 ML IV SCH ×2 (13:56→21:54)
[2019-02-12] MEDS: ENOXAPARIN 40 MG/0.4 ML SYRINGE SUBCUT SCH (14:36)
[2019-02-12] MEDS: ACETAMINOPHEN 325 MG TABLET PO PRN ×2 (14:36→21:44)
[2019-02-12] MEDS: INSULIN LISPRO 100 UNIT/ML SUBCUT SCH ×2 (18:22→22:22)
[2019-02-12] MEDS: DOCUSATE SODIUM 100 MG CAPSULE PO SCH (21:45)
[2019-02-12] MEDS: ATORVASTATIN 20 MG TABLET PO SCH (21:45)
[2019-02-12] MEDS: METOPROLOL TARTRATE 25 MG TABLET PO SCH (21:50)
[2019-02-12] MEDS: PIPERACILLIN/TAZOBACTAM 3,375 MG in SODIUM CHLORIDE 0.9% 100 ML IV SCH (22:22)
[2019-02-13] MEDS: VANCOMYCIN INJ 1,500 MG in SODIUM CHLORIDE 0.9% 500 ML IV SCH ×2 (02:02→12:18)
[2019-02-13 04:00] LABS: Basophils % 0.2 % (0.0-0.8); Hematocrit 34.7 VOL% (42.0-52.0); Hemoglobin 11.6 GM/DL (14.0-18.0); Immature Granulocytes % 0.4 %; Immature Granulocytes Absolute 0.06 #; Lymphocytes # 1.1 10*3/uL (1.4-4.0); Lymphocytes % 7.9 % (21.2-54.2); Mean Corpuscular HGB Conc 33.4 GM/DL (32-36); Mean Corpuscular Volume 93.8 FL (87-102); Mean Platelet Volume 9.5 FL (9.6-12.0); Monocytes % 2.5 % (1.7-12.7); Platelet Count 222 T/CUMM (130-400); Red Cell Distribution Width 13.3 % (9.3-17.3); White Blood Count 13.7 T/CUMM (4-12)
[2019-02-13] MEDS: PIPERACILLIN/TAZOBACTAM 3,375 MG in SODIUM CHLORIDE 0.9% 100 ML IV SCH ×3 (05:20→21:19)
[2019-02-13] MEDS: ACETAMINOPHEN 325 MG TABLET PO PRN ×2 (05:20→17:56)
[2019-02-13] MEDS: METOPROLOL TARTRATE 25 MG TABLET PO SCH ×2 (08:03→21:18)
[2019-02-13] MEDS: DOCUSATE SODIUM 100 MG CAPSULE PO SCH ×2 (08:04→21:18)
[2019-02-13] MEDS: LOSARTAN 25 MG TABLET PO SCH (08:04)
[2019-02-13] MEDS: FENOFIBRATE 145 MG TABLET PO SCH (08:04)
[2019-02-13] MEDS: PANTOPRAZOLE 40 MG TABLET PO SCH (08:04)
[2019-02-13] MEDS: ASPIRIN EC 325 MG TABLET PO SCH (08:04)
[2019-02-13] MEDS: INSULIN LISPRO 100 UNIT/ML SUBCUT SCH ×4 (09:14→23:25)
[2019-02-13] MEDS: ENOXAPARIN 40 MG/0.4 ML SYRINGE SUBCUT SCH (12:17)
[2019-02-13] MEDS: SODIUM CHLORIDE 0.9% 1,000 ML IV SCH (12:18)
[2019-02-13] MEDS: VICTOZA SUBCUT SCH (18:17)
[2019-02-13] MEDS: ATORVASTATIN 20 MG TABLET PO SCH (21:18)
[2019-02-14] MEDS: VANCOMYCIN INJ 1,500 MG in SODIUM CHLORIDE 0.9% 500 ML IV SCH ×3 (01:05→11:48)
[2019-02-14] MEDS: SODIUM CHLORIDE 0.9% 1,000 ML IV SCH ×3 (03:05→13:49)
[2019-02-14 04:41] LABS: Basophils % 0.3 % (0.0-0.8); Eosinophils # 0.1 10*3/uL (0.0-0.87); Eosinophils % 1.2 % (0.00-10.9); Hematocrit 34.7 VOL% (42.0-52.0); Immature Granulocytes % 0.5 %; Immature Granulocytes Absolute 0.05 #; Lymphocytes # 1.6 10*3/uL (1.4-4.0); Lymphocytes % 17.5 % (21.2-54.2); Mean Corpuscular HGB Conc 31.7 GM/DL (32-36); Mean Corpuscular Volume 95.1 FL (87-102); Mean Platelet Volume 9.3 FL (9.6-12.0); Monocytes % 5.9 % (1.7-12.7); Neutrophils % 74.6 % (38.7-73.9); Platelet Count 209 T/CUMM (130-400); Red Blood Count 3.65 MC/CUMM (3.8-5.5); Red Cell Distribution Width 13.3 % (9.3-17.3); White Blood Count 9.3 T/CUMM (4-12)
[2019-02-14 05:01] LABS: Calcium 8.1 MG/DL (8.5-10.1)
[2019-02-14] MEDS: ACETAMINOPHEN 325 MG TABLET PO PRN ×2 (05:08→11:55)
[2019-02-14] MEDS: PIPERACILLIN/TAZOBACTAM 3,375 MG in SODIUM CHLORIDE 0.9% 100 ML IV SCH ×3 (05:08→21:18)
[2019-02-14] MEDS: PANTOPRAZOLE 40 MG TABLET PO SCH (08:28)
[2019-02-14] MEDS: FENOFIBRATE 145 MG TABLET PO SCH (08:28)
[2019-02-14] MEDS: METOPROLOL TARTRATE 25 MG TABLET PO SCH ×2 (08:28→21:18)
[2019-02-14] MEDS: LOSARTAN 25 MG TABLET PO SCH (08:28)
[2019-02-14] MEDS: ASPIRIN EC 325 MG TABLET PO SCH (08:28)
[2019-02-14] MEDS: INSULIN LISPRO 100 UNIT/ML SUBCUT SCH ×4 (08:31→21:18)
[2019-02-14] MEDS: DOCUSATE SODIUM 100 MG CAPSULE PO SCH ×2 (08:33→21:18)
[2019-02-14] MEDS: ENOXAPARIN 40 MG/0.4 ML SYRINGE SUBCUT SCH (11:48)
[2019-02-14] MEDS: VICTOZA SUBCUT SCH (12:45)
[2019-02-14] MEDS ORDERED: methylPREDNISolone SOD SUC 40 MG/1 ML VIAL IV ONE (13:36)
[2019-02-14] MEDS ORDERED: MORPHINE 4 MG/1 ML VIAL IV PRN (13:36)
[2019-02-14] MEDS ORDERED: FUROSEMIDE 20 MG/2 ML VIAL IV ONE (13:36)
[2019-02-14] MEDS ORDERED: ALBUTEROL/IPRATROPIUM 3 ML NEB RESP TX ONE (13:36)
[2019-02-14] MEDS ORDERED: methylPREDNISolone SOD SUC 40 MG/1 ML VIAL ONE (13:41)
[2019-02-14] MEDS ORDERED: FUROSEMIDE 20 MG/2 ML VIAL ONE (13:41)
[2019-02-14] MEDS: methylPREDNISolone SOD SUC 125 MG/2 ML VIAL IV SCH (17:43)
[2019-02-14] MEDS: ALBUTEROL/IPRATROPIUM 3 ML NEB RESP TX SCH (18:56)
[2019-02-14] MEDS: ATORVASTATIN 20 MG TABLET PO SCH (21:18)
[2019-02-15] MEDS: ALBUTEROL/IPRATROPIUM 3 ML NEB RESP TX SCH ×4 (00:31→19:11)
[2019-02-15] MEDS: methylPREDNISolone SOD SUC 125 MG/2 ML VIAL IV SCH ×3 (01:21→17:14)
[2019-02-15] MEDS: VANCOMYCIN INJ 1,500 MG in SODIUM CHLORIDE 0.9% 500 ML IV SCH ×2 (01:22→12:50)
[2019-02-15] MEDS: PIPERACILLIN/TAZOBACTAM 3,375 MG in SODIUM CHLORIDE 0.9% 100 ML IV SCH ×3 (05:03→20:53)
[2019-02-15] MEDS: INSULIN LISPRO 100 UNIT/ML SUBCUT SCH ×4 (08:21→20:53)
[2019-02-15] MEDS: FENOFIBRATE 145 MG TABLET PO SCH (10:31)
[2019-02-15] MEDS: ASPIRIN EC 325 MG TABLET PO SCH (10:31)
[2019-02-15] MEDS: METOPROLOL TARTRATE 25 MG TABLET PO SCH ×2 (10:31→20:52)
[2019-02-15] MEDS: PANTOPRAZOLE 40 MG TABLET PO SCH (10:31)
[2019-02-15] MEDS: LOSARTAN 25 MG TABLET PO SCH (10:31)
[2019-02-15] MEDS: ENOXAPARIN 40 MG/0.4 ML SYRINGE SUBCUT SCH (10:32)
[2019-02-15] MEDS: VICTOZA SUBCUT SCH (10:32)
[2019-02-15] MEDS: DOCUSATE SODIUM 100 MG CAPSULE PO SCH ×2 (10:33→20:53)
[2019-02-15] MEDS: ATORVASTATIN 20 MG TABLET PO SCH (20:53)
[2019-02-16] MEDS: ALBUTEROL/IPRATROPIUM 3 ML NEB RESP TX SCH ×2 (00:31→07:23)
[2019-02-16] MEDS: methylPREDNISolone SOD SUC 125 MG/2 ML VIAL IV SCH ×2 (00:33→09:14)
[2019-02-16] MEDS: VANCOMYCIN INJ 1,500 MG in SODIUM CHLORIDE 0.9% 500 ML IV SCH (00:34)
[2019-02-16] MEDS: PIPERACILLIN/TAZOBACTAM 3,375 MG in SODIUM CHLORIDE 0.9% 100 ML IV SCH (04:30)
[2019-02-16 07:48] VITALS: BP 115/65
[2019-02-16] MEDS ORDERED: cefTRIAXone 1,000 MG in SYRINGE 1 EACH IV SCH (09:00)
[2019-02-16] MEDS: METOPROLOL TARTRATE 25 MG TABLET PO SCH (09:13)
[2019-02-16] MEDS: ASPIRIN EC 325 MG TABLET PO SCH (09:13)
[2019-02-16] MEDS: ENOXAPARIN 40 MG/0.4 ML SYRINGE SUBCUT SCH (09:13)
[2019-02-16] MEDS: FENOFIBRATE 145 MG TABLET PO SCH (09:13)
[2019-02-16] MEDS: PANTOPRAZOLE 40 MG TABLET PO SCH (09:13)
[2019-02-16] MEDS: LOSARTAN 25 MG TABLET PO SCH (09:13)
[2019-02-16] MEDS: INSULIN LISPRO 100 UNIT/ML SUBCUT SCH ×2 (09:14→13:47)
[2019-02-16] MEDS: DOCUSATE SODIUM 100 MG CAPSULE PO SCH (09:14)
[2019-02-16] MEDS: VICTOZA SUBCUT SCH (09:15)
== END 2019-02-16 13:20 | disposition home or self-care (01) | DRG 603 ==
LOC: N.ED 09:08 → N.EDINP 12:13 → N.2E 13:08
PROVIDERS: ADMIT Family Medicine; ATTEND Family Medicine

== ENCOUNTER 2020-11-25 09:53 | Observation (INO) ==
[2020-11-25] MEDS ORDERED: ASPIRIN 325 MG TABLET PO STA (10:17)
[2020-11-25] MEDS ORDERED: NITROGLYCERIN 2% OINT 1 INCH/GM PACK TOP STA (10:17)
[2020-11-25] MEDS ORDERED: MORPHINE 4 MG/1 ML VIAL IV STA (10:17)
[2020-11-25] MEDS ORDERED: ENOXAPARIN 100 MG/ML SYRINGE SUBCUT STA (10:17)
[2020-11-25] MEDS ORDERED: NITROGLYCERIN SL 0.4 MG TABLET SL PRN ×2 (10:17→15:26)
[2020-11-25 10:26] LABS: Basophils % 0.4 % (0.0-0.8); Eosinophils # 0.1 10*3/uL (0.0-0.87); Eosinophils % 1.4 % (0.00-10.9); Hematocrit 40.5 VOL% (42.0-52.0); Hemoglobin 13.5 GM/DL (14.0-18.0); Immature Granulocytes % 0.6 %; Immature Granulocytes Absolute 0.05 #; Lymphocytes # 2.1 10*3/uL (1.4-4.0); Mean Corpuscular HGB Conc 33.3 GM/DL (32-36); Mean Corpuscular Volume 91.6 FL (87-102); Mean Platelet Volume 8.8 FL (9.6-12.0); Monocytes % 6.4 % (1.7-12.7); Neutrophils % 66.2 % (38.7-73.9); Platelet Count 360 T/CUMM (130-400); Red Blood Count 4.42 MC/CUMM (3.8-5.5); Red Cell Distribution Width 12.9 % (9.3-17.3); White Blood Count 8.5 T/CUMM (4-12)
[2020-11-25 10:57] LABS: Bilirubin,Total 0.5 MG/DL (0.2-1.0); Calcium 9.4 MG/DL (8.5-10.1); Osmolality,Calculated 284.5 MOS/KG (273-304); Potassium 4.2 MMOL/L (3.5-5.1); Total Protein 7.1 G/DL (6.4-8.2)
[2020-11-25] MEDS ORDERED: MAGNESIUM SULF RIDER 2 GM in PREMIX 1 EACH IV PRN (11:37)
[2020-11-25] MEDS ORDERED: MAGNESIUM SULF RIDER 4 GM in PREMIX 1 EACH IV PRN (11:37)
[2020-11-25] MEDS ORDERED: GLUCAGON 1 MG VIAL IM PRN (11:37)
[2020-11-25] MEDS ORDERED: POTASSIUM CHLORIDE 20 MEQ TABLET PO PRN (11:37)
[2020-11-25] MEDS ORDERED: DEXTROSE 50% 25 GM/50 ML VIAL IV PRN (11:37)
[2020-11-25] MEDS ORDERED: MORPHINE 4 MG/1 ML VIAL IV PRN (11:37)
[2020-11-25] MEDS ORDERED: ONDANSETRON 4 MG/2 ML VIAL IV PRN (11:37)
[2020-11-25] MEDS ORDERED: GABAPENTIN 100 MG CAPSULE PO ONE (11:52)
[2020-11-25] MEDS ORDERED: ACETAMINOPHEN 325 MG TABLET PO ONE (11:53)
[2020-11-25] MEDS ORDERED: CLOPIDOGREL 75 MG TABLET PO STA (11:54)
[2020-11-25] MEDS: SODIUM CHLORIDE 0.45% 1,000 ML IV SCH (14:56)
[2020-11-25] MEDS: GABAPENTIN 100 MG CAPSULE PO SCH ×2 (14:57→20:44)
[2020-11-25] MEDS: ENOXAPARIN 100 MG/ML SYRINGE SUBCUT SCH ×2 (15:29→23:58)
[2020-11-25] MEDS: INSULIN LISPRO 100 UNIT/ML SUBCUT SCH ×2 (16:53→20:45)
[2020-11-25] MEDS ORDERED: MAGNESIUM SULF RIDER 2 GM in PREMIX 1 EACH IV ONE (19:13)
[2020-11-25] MEDS: ACETAMINOPHEN 325 MG TABLET PO SCH (20:43)
[2020-11-25] MEDS ORDERED: TICAGRELOR 90 MG TABLET PO SCH (21:00)
[2020-11-25] MEDS ORDERED: ATORVASTATIN 80 MG TABLET PO SCH (21:00)
[2020-11-26] MEDS: SODIUM CHLORIDE 0.45% 1,000 ML IV SCH (05:30)
[2020-11-26 06:01] LABS: Basophils % 0.3 % (0.0-0.8); Eosinophils # 0.2 10*3/uL (0.0-0.87); Eosinophils % 2.1 % (0.00-10.9); Hematocrit 38.4 VOL% (42.0-52.0); Hemoglobin 13.2 GM/DL (14.0-18.0); Immature Granulocytes % 0.7 %; Immature Granulocytes Absolute 0.05 #; Lymphocytes # 2.7 10*3/uL (1.4-4.0); Lymphocytes % 37.5 % (21.2-54.2); Mean Corpuscular HGB Conc 34.4 GM/DL (32-36); Mean Corpuscular Volume 91.6 FL (87-102); Monocytes % 7.6 % (1.7-12.7); Neutrophils % 51.8 % (38.7-73.9); Platelet Count 300 T/CUMM (130-400); Red Blood Count 4.19 MC/CUMM (3.8-5.5); White Blood Count 7.2 T/CUMM (4-12)
[2020-11-26 06:20] LABS: Calcium 8.6 MG/DL (8.5-10.1); Potassium 3.9 MMOL/L (3.5-5.1)
[2020-11-26 06:23] LABS: Risk Ratio 4.46; VLDL CHOLESTEROL 41.2 MG/DL
[2020-11-26] MEDS ORDERED: GLIMEPIRIDE 2 MG TABLET PO SCH (08:00)
[2020-11-26] MEDS ORDERED: CLOPIDOGREL 75 MG TABLET PO SCH (09:00)
[2020-11-26] MEDS ORDERED: FENOFIBRATE 145 MG TABLET PO SCH (09:00)
[2020-11-26] MEDS ORDERED: MULTIVITAMIN (CENTRUM) TABLET PO SCH (09:00)
[2020-11-26] MEDS ORDERED: ISOSORBIDE MONONITRATE 30 MG TABLET PO SCH (09:00)
[2020-11-26] MEDS ORDERED: ASPIRIN EC 81 MG TABLET PO SCH (09:00)
[2020-11-26] MEDS ORDERED: CHOLECALCIFEROL 1,000 UNIT TABLET PO SCH (09:00)
[2020-11-26] MEDS ORDERED: EZETIMIBE 10 MG TABLET PO SCH (09:00)
[2020-11-26] MEDS ORDERED: lisinopriL 2.5 MG TABLET PO SCH (09:00)
[2020-11-26] MEDS: GABAPENTIN 100 MG CAPSULE PO SCH ×2 (09:33→19:00)
[2020-11-26] MEDS: ACETAMINOPHEN 325 MG TABLET PO SCH (09:35)
[2020-11-26] MEDS: INSULIN LISPRO 100 UNIT/ML SUBCUT SCH ×3 (09:43→19:00)
[2020-11-26 11:49] VITALS: BP 109/68
== END 2020-11-26 16:55 | disposition home or self-care (01) ==
LOC: N.EDINP 09:53 → N.ED 09:53 → N.EDINP 12:27 → N.TELES 12:43
PROVIDERS: ADMIT Family Medicine; ATTEND Family Medicine

== ENCOUNTER 2021-03-19 23:50 | Observation (INO) ==
[2021-03-20] MEDS ORDERED: ASPIRIN CHEW 81 MG TABLET PO ONE (00:09)
[2021-03-20] MEDS ORDERED: NITROGLYCERIN SL 0.4 MG TABLET SL ONE (00:10)
[2021-03-20] MEDS ORDERED: NITROGLYCERIN SL 0.4 MG TABLET SL STA (00:13)
[2021-03-20] MEDS ORDERED: ASPIRIN CHEW 81 MG TABLET PO STA (00:13)
[2021-03-20 00:15] LABS: Basophils % 0.2 % (0.0-0.8); Eosinophils # 0.1 10*3/uL (0.0-0.87); Eosinophils % 1.1 % (0.00-10.9); Hematocrit 39.4 VOL% (42.0-52.0); Hemoglobin 12.7 GM/DL (14.0-18.0); Immature Granulocytes % 0.4 %; Immature Granulocytes Absolute 0.04 #; Lymphocytes # 2.9 10*3/uL (1.4-4.0); Lymphocytes % 29.3 % (21.2-54.2); Mean Corpuscular HGB Conc 32.2 GM/DL (32-36); Mean Corpuscular Volume 93.6 FL (87-102); Mean Platelet Volume 8.6 FL (9.6-12.0); Monocytes % 8.1 % (1.7-12.7); Neutrophils % 60.9 % (38.7-73.9); Platelet Count 339 T/CUMM (130-400); Red Blood Count 4.21 MC/CUMM (3.8-5.5); Red Cell Distribution Width 13.3 % (9.3-17.3)
[2021-03-20 00:26] LABS: INR 0.9; PT Patient Result 10.4 SECS (10.5-12.0); Partial Thromboplastin Time 25.4 SECS (23.9-33.8)
[2021-03-20] MEDS ORDERED: MORPHINE 2 MG/1 ML SYRINGE ONE (00:32)
[2021-03-20] MEDS ORDERED: ONDANSETRON 4 MG/2 ML VIAL ONE (00:32)
[2021-03-20] MEDS ORDERED: ONDANSETRON 4 MG/2 ML VIAL IV STA (00:36)
[2021-03-20] MEDS ORDERED: MORPHINE 2 MG/1 ML SYRINGE IV STA (00:36)
[2021-03-20] MEDS ORDERED: SODIUM CHLORIDE 0.9% 500 ML IV STA (00:37)
[2021-03-20] MEDS ORDERED: ASPIRIN 325 MG TABLET PO STA (00:37)
[2021-03-20] MEDS ORDERED: ALUM/MAG/SIMETH/LIDO VISC 1:1 30 ML BOTTLE PO STA (00:37)
[2021-03-20] MEDS ORDERED: PANTOPRAZOLE 40 MG VIAL IV STA (00:40)
[2021-03-20 00:50] LABS: Albumin 3.8 G/DL (3.4-5.0); Bilirubin,Total 0.6 MG/DL (0.20-1.00); Calcium 9.5 MG/DL (8.5-10.1); Osmolality,Calculated 281.5 MOS/KG (273-304); Potassium 3.6 MMOL/L (3.5-5.1); Total Protein 7.4 G/DL (6.4-8.2)
[2021-03-20 01:26] LABS: Amylase 24 U/L (25-115)
[2021-03-20] MEDS ORDERED: DEXTROSE 50% 25 GM/50 ML VIAL IV PRN (05:53)
[2021-03-20] MEDS ORDERED: GLUCAGON 1 MG VIAL IM PRN (05:53)
[2021-03-20] MEDS ORDERED: MORPHINE 2 MG/1 ML SYRINGE IV PRN (05:53)
[2021-03-20] MEDS ORDERED: ACETAMINOPHEN 325 MG TABLET PO PRN (05:53)
[2021-03-20] MEDS ORDERED: ONDANSETRON 4 MG/2 ML VIAL IV PRN (05:53)
[2021-03-20] MEDS: SODIUM CHLORIDE 0.9% 1,000 ML IV SCH ×2 (06:35→19:19)
[2021-03-20] MEDS: NITROGLYCERIN 2% OINT 1 INCH/GM PACK TOP SCH ×4 (06:35→23:35)
[2021-03-20] MEDS: ENOXAPARIN 100 MG/ML SYRINGE SUBCUT SCH ×2 (06:35→17:08)
[2021-03-20] MEDS: INSULIN REGULAR 100 UNIT/ML SUBCUT SCH ×4 (06:42→23:35)
[2021-03-20] MEDS ORDERED: NITROGLYCERIN SL 0.4 MG TABLET SL PRN (07:07)
[2021-03-20] MEDS ORDERED: CLOPIDOGREL 75 MG TABLET PO SCH (09:00)
[2021-03-20] MEDS ORDERED: ASPIRIN EC 325 MG TABLET PO SCH (09:00)
[2021-03-20] MEDS: PANTOPRAZOLE 40 MG VIAL IV SCH (09:11)
[2021-03-20] MEDS: metFORMIN 500 MG TABLET PO SCH ×2 (09:12→17:08)
[2021-03-20] MEDS: FENOFIBRATE 145 MG TABLET PO SCH (09:13)
[2021-03-20] MEDS: lisinopriL 2.5 MG TABLET PO SCH (09:13)
[2021-03-20] MEDS: EZETIMIBE 10 MG TABLET PO SCH (09:13)
[2021-03-20] MEDS: DOCUSATE SODIUM 100 MG CAPSULE PO SCH ×2 (09:13→20:55)
[2021-03-20] MEDS: GLIMEPIRIDE 2 MG TABLET PO SCH (09:13)
[2021-03-20] MEDS: CHOLECALCIFEROL 1,000 UNIT TABLET PO SCH (09:14)
[2021-03-20] MEDS: ISOSORBIDE MONONITRATE 30 MG TABLET PO SCH (09:14)
[2021-03-20] MEDS: ASPIRIN EC 81 MG TABLET PO SCH (09:14)
[2021-03-20] MEDS: MULTIVITAMIN (CENTRUM) TABLET PO SCH (09:14)
[2021-03-20] MEDS: KETOROLAC 30 MG/1 ML VIAL IV SCH ×3 (09:18→20:57)
[2021-03-20] MEDS: ATORVASTATIN 80 MG TABLET PO SCH (20:55)
[2021-03-21] MEDS: KETOROLAC 30 MG/1 ML VIAL IV SCH ×2 (03:17→09:13)
[2021-03-21 05:37] LABS: Basophils % 0.3 % (0.0-0.8); Eosinophils # 0.1 10*3/uL (0.0-0.87); Eosinophils % 1.5 % (0.00-10.9); Hematocrit 35.2 VOL% (42.0-52.0); Hemoglobin 11.8 GM/DL (14.0-18.0); Immature Granulocytes % 0.3 %; Immature Granulocytes Absolute 0.03 #; Lymphocytes # 1.9 10*3/uL (1.4-4.0); Lymphocytes % 21.6 % (21.2-54.2); Mean Corpuscular HGB Conc 33.5 GM/DL (32-36); Mean Corpuscular Volume 94.6 FL (87-102); Mean Platelet Volume 9.3 FL (9.6-12.0); Monocytes % 7.1 % (1.7-12.7); Neutrophils % 69.2 % (38.7-73.9); Platelet Count 270 T/CUMM (130-400); Red Blood Count 3.72 MC/CUMM (3.8-5.5); Red Cell Distribution Width 13.3 % (9.3-17.3); White Blood Count 8.7 T/CUMM (4-12)
[2021-03-21] MEDS ORDERED: ENOXAPARIN 100 MG/ML SYRINGE SUBCUT ONE (05:48)
[2021-03-21] MEDS: INSULIN REGULAR 100 UNIT/ML SUBCUT SCH ×3 (05:57→19:07)
[2021-03-21] MEDS: ENOXAPARIN 100 MG/ML SYRINGE SUBCUT SCH ×2 (05:57→19:08)
[2021-03-21] MEDS: NITROGLYCERIN 2% OINT 1 INCH/GM PACK TOP SCH ×3 (05:57→19:11)
[2021-03-21 06:08] LABS: Bilirubin,Total 0.7 MG/DL (0.20-1.00); Calcium 8.5 MG/DL (8.5-10.1); Osmolality,Calculated 279.5 MOS/KG (273-304); Potassium 4.1 MMOL/L (3.5-5.1); Risk Ratio 3.34; Total Protein 5.9 G/DL (6.4-8.2); VLDL Cholesterol 22.8 MG/DL
[2021-03-21] MEDS ORDERED: BISACODYL 5 MG TABLET PO ONE (07:42)
[2021-03-21] MEDS: SODIUM CHLORIDE 0.9% 1,000 ML IV SCH ×2 (09:11→21:55)
[2021-03-21] MEDS: MULTIVITAMIN (CENTRUM) TABLET PO SCH (09:11)
[2021-03-21] MEDS: CHOLECALCIFEROL 1,000 UNIT TABLET PO SCH (09:12)
[2021-03-21] MEDS: GLIMEPIRIDE 2 MG TABLET PO SCH (09:12)
[2021-03-21] MEDS: ASPIRIN EC 81 MG TABLET PO SCH (09:12)
[2021-03-21] MEDS: ISOSORBIDE MONONITRATE 30 MG TABLET PO SCH (09:12)
[2021-03-21] MEDS: FENOFIBRATE 145 MG TABLET PO SCH (09:12)
[2021-03-21] MEDS: lisinopriL 2.5 MG TABLET PO SCH (09:12)
[2021-03-21] MEDS: PANTOPRAZOLE 40 MG VIAL IV SCH (09:13)
[2021-03-21] MEDS: DOCUSATE SODIUM 100 MG CAPSULE PO SCH ×2 (09:13→21:56)
[2021-03-21] MEDS: metFORMIN 500 MG TABLET PO SCH ×2 (09:13→16:34)
[2021-03-21] MEDS: EZETIMIBE 10 MG TABLET PO SCH (09:13)
[2021-03-21] MEDS ORDERED: ASPIRIN EC 81 MG TABLET PO ONE (11:19)
[2021-03-21] MEDS: PIPERACILLIN/TAZOBACTAM 3,375 MG in SODIUM CHLORIDE 0.9% 100 ML IV SCH ×2 (11:26→19:13)
[2021-03-21] MEDS: ASPIRIN 325 MG TABLET PO SCH (12:21)
[2021-03-21] MEDS: ATORVASTATIN 80 MG TABLET PO SCH (21:55)
[2021-03-22] MEDS: INSULIN REGULAR 100 UNIT/ML SUBCUT SCH ×2 (00:34→05:33)
[2021-03-22] MEDS: NITROGLYCERIN 2% OINT 1 INCH/GM PACK TOP SCH ×2 (00:34→05:25)
[2021-03-22] MEDS: PIPERACILLIN/TAZOBACTAM 3,375 MG in SODIUM CHLORIDE 0.9% 100 ML IV SCH (01:54)
[2021-03-22] MEDS: ENOXAPARIN 100 MG/ML SYRINGE SUBCUT SCH (05:27)
[2021-03-22 07:14] LABS: Basophils % 0.1 % (0.0-0.8); Eosinophils # 0.1 10*3/uL (0.0-0.87); Eosinophils % 1.7 % (0.00-10.9); Hematocrit 32.7 VOL% (42.0-52.0); Hemoglobin 10.8 GM/DL (14.0-18.0); Immature Granulocytes % 0.4 %; Immature Granulocytes Absolute 0.03 #; Lymphocytes # 1.6 10*3/uL (1.4-4.0); Lymphocytes % 19.4 % (21.2-54.2); Mean Corpuscular Volume 93.7 FL (87-102); Mean Platelet Volume 9.2 FL (9.6-12.0); Monocytes % 6.7 % (1.7-12.7); Neutrophils % 71.7 % (38.7-73.9); Platelet Count 269 T/CUMM (130-400); Red Blood Count 3.49 MC/CUMM (3.8-5.5); Red Cell Distribution Width 13.2 % (9.3-17.3); White Blood Count 8.2 T/CUMM (4-12)
[2021-03-22 07:45] LABS: Calcium 8.4 MG/DL (8.5-10.1); Potassium 4.1 MMOL/L (3.5-5.1)
[2021-03-22 08:19] VITALS: BP 124/60
[2021-03-22] MEDS: metFORMIN 500 MG TABLET PO SCH (09:09)
[2021-03-22] MEDS: CHOLECALCIFEROL 1,000 UNIT TABLET PO SCH (09:09)
[2021-03-22] MEDS: DOCUSATE SODIUM 100 MG CAPSULE PO SCH (09:09)
[2021-03-22] MEDS: ISOSORBIDE MONONITRATE 30 MG TABLET PO SCH (09:09)
[2021-03-22] MEDS: FENOFIBRATE 145 MG TABLET PO SCH (09:09)
[2021-03-22] MEDS: MULTIVITAMIN (CENTRUM) TABLET PO SCH (09:10)
[2021-03-22] MEDS: EZETIMIBE 10 MG TABLET PO SCH (09:10)
[2021-03-22] MEDS: ASPIRIN 325 MG TABLET PO SCH (09:10)
[2021-03-22] MEDS: GLIMEPIRIDE 2 MG TABLET PO SCH (09:10)
[2021-03-22] MEDS: lisinopriL 2.5 MG TABLET PO SCH (09:10)
[2021-03-22] MEDS: PANTOPRAZOLE 40 MG VIAL IV SCH (09:12)
== END 2021-03-22 11:16 | disposition home or self-care (01) ==
LOC: N.ED 23:50 → N.EDINP 23:50 → N.TELEN 03-20 06:32
PROVIDERS: ADMIT Family Medicine; ATTEND Family Medicine

== ENCOUNTER 2021-03-22 16:43 | Inpatient (IN) ==
[2021-03-22] MEDS ORDERED: ONDANSETRON 4 MG/2 ML VIAL IV STA (20:04)
[2021-03-22] MEDS ORDERED: HYDROmorphone 2 MG/1 ML VIAL IV STA (20:04)
[2021-03-22] MEDS ORDERED: SODIUM CHLORIDE 0.9% 500 ML IV STA (20:04)
[2021-03-22] MEDS ORDERED: PIPERACILLIN/TAZOBACTAM 3,375 MG in SODIUM CHLORIDE 0.9% 100 ML IV STA (20:04)
[2021-03-22] MEDS ORDERED: PANTOPRAZOLE 40 MG VIAL IV STA (20:04)
[2021-03-22 20:42] LABS: Basophils % 0.1 % (0.0-0.8); Eosinophils % 0.1 % (0.00-10.9); Hematocrit 36.2 VOL% (42.0-52.0); Hemoglobin 11.8 GM/DL (14.0-18.0); Immature Granulocytes % 0.6 %; Immature Granulocytes Absolute 0.09 #; Lymphocytes % 6.4 % (21.2-54.2); Mean Corpuscular HGB Conc 32.6 GM/DL (32-36); Mean Corpuscular Volume 93.3 FL (87-102); Mean Platelet Volume 8.9 FL (9.6-12.0); Neutrophils % 88.8 % (38.7-73.9); Platelet Count 300 T/CUMM (130-400); Red Blood Count 3.88 MC/CUMM (3.8-5.5); Red Cell Distribution Width 13.1 % (9.3-17.3)
[2021-03-22 21:22] LABS: Albumin 3.3 G/DL (3.4-5.0); Bilirubin,Total 1.6 MG/DL (0.20-1.00); Calcium 8.8 MG/DL (8.5-10.1); Osmolality,Calculated 282.5 MOS/KG (273-304); Potassium 3.7 MMOL/L (3.5-5.1)
[2021-03-23] MEDS ORDERED: HYDROmorphone 2 MG/1 ML VIAL IV PRN ×2 (05:05→09:00)
[2021-03-23] MEDS ORDERED: ONDANSETRON 4 MG/2 ML VIAL IV PRN ×2 (05:05→09:02)
[2021-03-23] MEDS ORDERED: GLUCAGON 1 MG VIAL IM PRN (05:05)
[2021-03-23] MEDS ORDERED: NITROGLYCERIN SL 0.4 MG TABLET SL PRN (05:05)
[2021-03-23] MEDS ORDERED: ACETAMINOPHEN 325 MG TABLET PO PRN (05:05)
[2021-03-23] MEDS ORDERED: DEXTROSE 50% 25 GM/50 ML VIAL IV PRN (05:05)
[2021-03-23] MEDS ORDERED: PIPERACILLIN/TAZOBACTAM 3,375 MG VIAL IV ONE (06:33)
[2021-03-23] MEDS: PIPERACILLIN/TAZOBACTAM 3,375 MG in SODIUM CHLORIDE 0.9% 100 ML IV SCH ×3 (06:45→23:19)
[2021-03-23] MEDS: SODIUM CHLORIDE 0.9% 1,000 ML IV SCH ×2 (06:50→17:03)
[2021-03-23] MEDS: INSULIN REGULAR 100 UNIT/ML SUBCUT SCH ×3 (06:50→19:16)
[2021-03-23] MEDS: metFORMIN 500 MG TABLET PO SCH ×2 (08:00→17:43)
[2021-03-23] MEDS: GLIMEPIRIDE 2 MG TABLET PO SCH (08:00)
[2021-03-23] MEDS ORDERED: ENOXAPARIN 40 MG/0.4 ML SYRINGE SUBCUT SCH (09:00)
[2021-03-23] MEDS ORDERED: EZETIMIBE 10 MG TABLET PO SCH (09:00)
[2021-03-23] MEDS ORDERED: CIPROFLOXACIN 500 MG TABLET PO SCH (09:00)
[2021-03-23] MEDS ORDERED: NON-FORMULARY MEDICATION (Omeprazole 20 mg Capsule,Delayed Release(Dr/Ec)) PO SCH (09:00)
[2021-03-23] MEDS ORDERED: FENOFIBRATE 145 MG TABLET PO SCH (09:00)
[2021-03-23 10:21] LABS: Bilirubin,Urine Negative (Negative); Blood, Urine Negative (Negative); Glucose,Urine (UA) Negative (Negative); Ketones,Urine 5 mg/dL (Negative); Nitrite,Urine Negative (Negative); Protein,Urine 30 MG/DL; RBC,Urine 1 /HPF (0-4); Urine Appearance CLEAR (Clear); Urine Color Amber (Yellow); Urine Specific Gravity 1.026 (1.001-1.035)
[2021-03-23] MEDS ORDERED: fentaNYL 100 MCG/2 ML VIAL IV ONE (10:24)
[2021-03-23] MEDS ORDERED: MIDAZOLAM 2 MG/2 ML VIAL IV ONE (10:24)
[2021-03-23] MEDS: SODIUM CHLORIDE 0.45% 1,000 ML IV SCH (10:30)
[2021-03-23] MEDS: MULTIVITAMIN (CENTRUM) TABLET PO SCH (12:01)
[2021-03-23] MEDS: ASPIRIN 325 MG TABLET PO SCH (12:01)
[2021-03-23] MEDS: ISOSORBIDE MONONITRATE 30 MG TABLET PO SCH (12:02)
[2021-03-23] MEDS: DOCUSATE SODIUM 100 MG CAPSULE PO SCH ×2 (12:02→20:59)
[2021-03-23] MEDS: lisinopriL 2.5 MG TABLET PO SCH (12:02)
[2021-03-23] MEDS: ONDANSETRON ODT 4 MG TABLET PO SCH ×3 (12:03→23:18)
[2021-03-23] MEDS: CHOLECALCIFEROL 1,000 UNIT TABLET PO SCH (12:03)
[2021-03-23] MEDS: PANTOPRAZOLE 40 MG VIAL IV SCH (12:04)
[2021-03-23] MEDS: ATORVASTATIN 80 MG TABLET PO SCH (20:59)
[2021-03-24] MEDS: ACETAMINOPHEN 325 MG TABLET PO PRN (01:43)
[2021-03-24] MEDS: INSULIN REGULAR 100 UNIT/ML SUBCUT SCH ×4 (01:44→18:22)
[2021-03-24] MEDS: ONDANSETRON ODT 4 MG TABLET PO SCH ×4 (04:35→23:02)
[2021-03-24] MEDS: SODIUM CHLORIDE 0.9% 1,000 ML IV SCH ×4 (05:04→23:02)
[2021-03-24 06:04] LABS: Basophils % 0.2 % (0.0-0.8); Eosinophils # 0.1 10*3/uL (0.0-0.87); Hematocrit 37.6 VOL% (42.0-52.0); Immature Granulocytes % 0.6 %; Immature Granulocytes Absolute 0.05 #; Lymphocytes # 1.7 10*3/uL (1.4-4.0); Lymphocytes % 19.5 % (21.2-54.2); Mean Corpuscular HGB Conc 31.9 GM/DL (32-36); Mean Corpuscular Volume 96.4 FL (87-102); Mean Platelet Volume 9.1 FL (9.6-12.0); Monocytes % 5.8 % (1.7-12.7); Neutrophils % 72.9 % (38.7-73.9); Platelet Count 295 T/CUMM (130-400); Red Cell Distribution Width 13.8 % (9.3-17.3); White Blood Count 8.8 T/CUMM (4-12)
[2021-03-24] MEDS: PIPERACILLIN/TAZOBACTAM 3,375 MG in SODIUM CHLORIDE 0.9% 100 ML IV SCH ×3 (06:24→23:02)
[2021-03-24 06:34] LABS: Albumin 3.2 G/DL (3.4-5.0); Bilirubin,Total 1.4 MG/DL (0.20-1.00); Calcium 8.8 MG/DL (8.5-10.1); Potassium 4.1 MMOL/L (3.5-5.1); Risk Ratio 5.39
[2021-03-24] MEDS: ASPIRIN 325 MG TABLET PO SCH (09:19)
[2021-03-24] MEDS: metFORMIN 500 MG TABLET PO SCH ×2 (09:19→18:20)
[2021-03-24] MEDS: GLIMEPIRIDE 2 MG TABLET PO SCH (09:19)
[2021-03-24] MEDS: lisinopriL 2.5 MG TABLET PO SCH (09:20)
[2021-03-24] MEDS: MULTIVITAMIN (CENTRUM) TABLET PO SCH (09:20)
[2021-03-24] MEDS: DOCUSATE SODIUM 100 MG CAPSULE PO SCH ×2 (09:20→20:37)
[2021-03-24] MEDS: ISOSORBIDE MONONITRATE 30 MG TABLET PO SCH (09:20)
[2021-03-24] MEDS: CHOLECALCIFEROL 1,000 UNIT TABLET PO SCH (09:20)
[2021-03-24] MEDS: PANTOPRAZOLE 40 MG VIAL IV SCH (09:23)
[2021-03-24] MEDS: SODIUM CHLORIDE 0.45% 1,000 ML IV SCH (10:30)
[2021-03-24] MEDS: ATORVASTATIN 80 MG TABLET PO SCH (20:37)
[2021-03-24] MEDS: TEMAZEPAM 15 MG CAPSULE PO SCH (23:02)
[2021-03-25] MEDS: INSULIN REGULAR 100 UNIT/ML SUBCUT SCH ×4 (01:06→18:02)
[2021-03-25] MEDS: ONDANSETRON ODT 4 MG TABLET PO SCH ×4 (03:55→21:11)
[2021-03-25] MEDS: SODIUM CHLORIDE 0.9% 1,000 ML IV SCH ×3 (05:31→21:12)
[2021-03-25] MEDS: ACETAMINOPHEN 325 MG TABLET PO PRN (05:31)
[2021-03-25 05:59] LABS: Albumin 2.8 G/DL (3.4-5.0); Bilirubin,Total 0.8 MG/DL (0.20-1.00); Calcium 8.3 MG/DL (8.5-10.1); Total Protein 6.3 G/DL (6.4-8.2)
[2021-03-25] MEDS: PIPERACILLIN/TAZOBACTAM 3,375 MG in SODIUM CHLORIDE 0.9% 100 ML IV SCH ×3 (06:45→23:15)
[2021-03-25 07:09] LABS: Osmolality,Calculated 274.7 MOS/KG (273-304)
[2021-03-25] MEDS: metFORMIN 500 MG TABLET PO SCH ×2 (09:06→17:18)
[2021-03-25] MEDS: GLIMEPIRIDE 2 MG TABLET PO SCH (09:06)
[2021-03-25] MEDS: DOCUSATE SODIUM 100 MG CAPSULE PO SCH ×2 (09:07→21:11)
[2021-03-25] MEDS: MULTIVITAMIN (CENTRUM) TABLET PO SCH (09:07)
[2021-03-25] MEDS: ASPIRIN 325 MG TABLET PO SCH (09:07)
[2021-03-25] MEDS: lisinopriL 2.5 MG TABLET PO SCH (09:07)
[2021-03-25] MEDS: CHOLECALCIFEROL 1,000 UNIT TABLET PO SCH (09:08)
[2021-03-25] MEDS: ISOSORBIDE MONONITRATE 30 MG TABLET PO SCH (09:08)
[2021-03-25] MEDS: PANTOPRAZOLE 40 MG VIAL IV SCH (09:13)
[2021-03-25] MEDS: SODIUM CHLORIDE 0.45% 1,000 ML IV SCH (10:30)
[2021-03-25] MEDS: TEMAZEPAM 15 MG CAPSULE PO SCH (21:11)
[2021-03-25] MEDS: ATORVASTATIN 80 MG TABLET PO SCH (21:11)
[2021-03-26] MEDS: INSULIN REGULAR 100 UNIT/ML SUBCUT SCH ×4 (02:45→17:36)
[2021-03-26] MEDS: ONDANSETRON ODT 4 MG TABLET PO SCH ×4 (02:46→20:16)
[2021-03-26 05:40] LABS: Basophils % 0.3 % (0.0-0.8); Eosinophils # 0.1 10*3/uL (0.0-0.87); Eosinophils % 1.6 % (0.00-10.9); Hematocrit 36.6 VOL% (42.0-52.0); Hemoglobin 11.6 GM/DL (14.0-18.0); Immature Granulocytes % 0.5 %; Immature Granulocytes Absolute 0.04 #; Lymphocytes # 1.6 10*3/uL (1.4-4.0); Lymphocytes % 18.6 % (21.2-54.2); Mean Corpuscular HGB Conc 31.7 GM/DL (32-36); Mean Corpuscular Volume 96.1 FL (87-102); Monocytes % 6.9 % (1.7-12.7); Neutrophils % 72.1 % (38.7-73.9); Platelet Count 270 T/CUMM (130-400); Red Blood Count 3.81 MC/CUMM (3.8-5.5); Red Cell Distribution Width 13.4 % (9.3-17.3); White Blood Count 8.8 T/CUMM (4-12)
[2021-03-26 05:52] LABS: Albumin 2.7 G/DL (3.4-5.0); Bilirubin,Direct 0.18 MG/DL (0.0-0.20); Bilirubin,Indirect 0.5 MG/DL (0.0-1.0); Bilirubin,Total 0.7 MG/DL (0.20-1.00); Total Protein 6.5 G/DL (6.4-8.2)
[2021-03-26 06:05] LABS: Calcium 8.9 MG/DL (8.5-10.1); Osmolality,Calculated 264.4 MOS/KG (273-304); Potassium 3.9 MMOL/L (3.5-5.1)
[2021-03-26] MEDS: SODIUM CHLORIDE 0.9% 1,000 ML IV SCH ×2 (07:49→15:30)
[2021-03-26] MEDS: PIPERACILLIN/TAZOBACTAM 3,375 MG in SODIUM CHLORIDE 0.9% 100 ML IV SCH ×3 (07:49→23:39)
[2021-03-26] MEDS: lisinopriL 2.5 MG TABLET PO SCH (08:30)
[2021-03-26] MEDS: PANTOPRAZOLE 40 MG VIAL IV SCH (08:30)
[2021-03-26] MEDS: ASPIRIN 325 MG TABLET PO SCH (08:31)
[2021-03-26] MEDS: DOCUSATE SODIUM 100 MG CAPSULE PO SCH ×2 (08:31→20:25)
[2021-03-26] MEDS: MULTIVITAMIN (CENTRUM) TABLET PO SCH (08:31)
[2021-03-26] MEDS: metFORMIN 500 MG TABLET PO SCH ×2 (08:31→17:30)
[2021-03-26] MEDS: GLIMEPIRIDE 2 MG TABLET PO SCH (08:31)
[2021-03-26] MEDS: ISOSORBIDE MONONITRATE 30 MG TABLET PO SCH (08:32)
[2021-03-26] MEDS: CHOLECALCIFEROL 1,000 UNIT TABLET PO SCH (08:32)
[2021-03-26] MEDS ORDERED: LIDOCAINE 1%/EPI INJ 20 ML VIAL ONE (11:22)
[2021-03-26] MEDS ORDERED: TISSUE ADHESIVE 1 EACH APPLICATOR TOP ONE (11:22)
[2021-03-26] MEDS ORDERED: BUPIVACAINE MPF 0.25% 30 ML VIAL ONE (11:22)
[2021-03-26] MEDS ORDERED: MIDAZOLAM 2 MG/2 ML VIAL ONE (12:15)
[2021-03-26] MEDS ORDERED: fentaNYL 100 MCG/2 ML VIAL ONE ×2 (12:15→14:01)
[2021-03-26] MEDS ORDERED: ePHEDrine 50 MG/ML VIAL ONE (12:32)
[2021-03-26] MEDS ORDERED: SEVOFLURANE 1 UNIT/15 MINUTE INH ONE ×6 (13:04→14:17)
[2021-03-26] MEDS ORDERED: GLYCOPYRROLATE 0.4 MG/2 ML VIAL ONE (13:04)
[2021-03-26] MEDS ORDERED: LIDOCAINE 2% 5 ML VIAL ONE (13:04)
[2021-03-26] MEDS ORDERED: propofoL 200 MG/20 ML VIAL IV ONE (13:04)
[2021-03-26] MEDS ORDERED: ROCURONIUM 50 MG/5 ML VIAL IV ONE (13:04)
[2021-03-26] MEDS ORDERED: NEOSTIGMINE 10 MG/10 ML VIAL ONE (13:05)
[2021-03-26] MEDS ORDERED: ONDANSETRON 4 MG/2 ML VIAL IV PRN (14:30)
[2021-03-26] MEDS: HYDROmorphone 2 MG/1 ML VIAL IV PRN ×4 (14:35→15:02)
[2021-03-26 14:40] LABS: Hematocrit 36.1 VOL% (42.0-52.0); Hemoglobin 11.7 GM/DL (14.0-18.0)
[2021-03-26] MEDS: ATORVASTATIN 80 MG TABLET PO SCH (20:16)
[2021-03-26] MEDS: TEMAZEPAM 15 MG CAPSULE PO SCH (20:16)
[2021-03-26 21:52] LABS: Hematocrit 33.9 VOL% (42.0-52.0); Hemoglobin 11.2 GM/DL (14.0-18.0)
[2021-03-27] MEDS: SODIUM CHLORIDE 0.9% 1,000 ML IV SCH ×2 (02:30→15:04)
[2021-03-27] MEDS: INSULIN REGULAR 100 UNIT/ML SUBCUT SCH ×4 (02:30→17:44)
[2021-03-27] MEDS: ONDANSETRON ODT 4 MG TABLET PO SCH ×4 (04:53→21:41)
[2021-03-27 06:21] LABS: Basophils % 0.1 % (0.0-0.8); Eosinophils % 0.2 % (0.00-10.9); Hematocrit 33.9 VOL% (42.0-52.0); Hemoglobin 10.9 GM/DL (14.0-18.0); Immature Granulocytes % 0.5 %; Immature Granulocytes Absolute 0.04 #; Lymphocytes # 1.3 10*3/uL (1.4-4.0); Lymphocytes % 15.3 % (21.2-54.2); Mean Corpuscular HGB Conc 32.2 GM/DL (32-36); Mean Platelet Volume 9.2 FL (9.6-12.0); Monocytes % 7.4 % (1.7-12.7); Neutrophils % 76.5 % (38.7-73.9); Platelet Count 301 T/CUMM (130-400); Red Blood Count 3.57 MC/CUMM (3.8-5.5); Red Cell Distribution Width 13.4 % (9.3-17.3); White Blood Count 8.5 T/CUMM (4-12)
[2021-03-27] MEDS: PIPERACILLIN/TAZOBACTAM 3,375 MG in SODIUM CHLORIDE 0.9% 100 ML IV SCH ×2 (06:30→15:03)
[2021-03-27 06:46] LABS: Albumin 2.7 G/DL (3.4-5.0); Bilirubin,Total 1.1 MG/DL (0.20-1.00); Calcium 8.8 MG/DL (8.5-10.1); Osmolality,Calculated 276.7 MOS/KG (273-304); Total Protein 6.6 G/DL (6.4-8.2)
[2021-03-27] MEDS: GLIMEPIRIDE 2 MG TABLET PO SCH (09:22)
[2021-03-27] MEDS: MULTIVITAMIN (CENTRUM) TABLET PO SCH (09:22)
[2021-03-27] MEDS: ASPIRIN 325 MG TABLET PO SCH (09:22)
[2021-03-27] MEDS: lisinopriL 2.5 MG TABLET PO SCH (09:22)
[2021-03-27] MEDS: metFORMIN 500 MG TABLET PO SCH ×2 (09:24→17:08)
[2021-03-27] MEDS: CHOLECALCIFEROL 1,000 UNIT TABLET PO SCH (09:24)
[2021-03-27] MEDS: DOCUSATE SODIUM 100 MG CAPSULE PO SCH (09:24)
[2021-03-27] MEDS: PANTOPRAZOLE 40 MG VIAL IV SCH (09:25)
[2021-03-27] MEDS: ISOSORBIDE MONONITRATE 30 MG TABLET PO SCH (09:28)
[2021-03-27] MEDS: HYDROmorphone 2 MG/1 ML VIAL IV PRN ×3 (10:46→21:42)
[2021-03-27] MEDS: oxyCODONE/ACETAMINOPHEN 5-325 MG TABLET PO PRN (15:02)
[2021-03-27] MEDS: ATORVASTATIN 80 MG TABLET PO SCH (21:41)
[2021-03-27] MEDS: TEMAZEPAM 15 MG CAPSULE PO SCH (21:41)
[2021-03-28] MEDS: DOCUSATE SODIUM 100 MG CAPSULE PO SCH ×2 (00:03→10:43)
[2021-03-28] MEDS: PIPERACILLIN/TAZOBACTAM 3,375 MG in SODIUM CHLORIDE 0.9% 100 ML IV SCH ×2 (00:12→06:13)
[2021-03-28] MEDS: INSULIN REGULAR 100 UNIT/ML SUBCUT SCH ×3 (01:41→11:18)
[2021-03-28] MEDS: oxyCODONE/ACETAMINOPHEN 5-325 MG TABLET PO PRN (03:58)
[2021-03-28] MEDS: ONDANSETRON ODT 4 MG TABLET PO SCH ×2 (04:24→10:47)
[2021-03-28 06:08] LABS: Basophils % 0.3 % (0.0-0.8); Eosinophils # 0.2 10*3/uL (0.0-0.87); Eosinophils % 1.8 % (0.00-10.9); Hematocrit 33.6 VOL% (42.0-52.0); Hemoglobin 10.6 GM/DL (14.0-18.0); Immature Granulocytes % 0.2 %; Immature Granulocytes Absolute 0.02 #; Lymphocytes % 22.6 % (21.2-54.2); Mean Corpuscular HGB Conc 31.5 GM/DL (32-36); Mean Corpuscular Volume 96.8 FL (87-102); Mean Platelet Volume 9.1 FL (9.6-12.0); Monocytes % 6.6 % (1.7-12.7); Neutrophils % 68.5 % (38.7-73.9); Platelet Count 338 T/CUMM (130-400); Red Blood Count 3.47 MC/CUMM (3.8-5.5); Red Cell Distribution Width 13.7 % (9.3-17.3); White Blood Count 8.9 T/CUMM (4-12)
[2021-03-28 06:30] LABS: Albumin 2.7 G/DL (3.4-5.0); Calcium 9.1 MG/DL (8.5-10.1); Osmolality,Calculated 267.2 MOS/KG (273-304); Potassium 3.7 MMOL/L (3.5-5.1); Total Protein 6.5 G/DL (6.4-8.2)
[2021-03-28] MEDS: SODIUM CHLORIDE 0.9% 1,000 ML IV SCH (06:45)
[2021-03-28] MEDS: GLIMEPIRIDE 2 MG TABLET PO SCH (10:42)
[2021-03-28] MEDS: metFORMIN 500 MG TABLET PO SCH (10:42)
[2021-03-28] MEDS: ASPIRIN 325 MG TABLET PO SCH (10:42)
[2021-03-28] MEDS: lisinopriL 2.5 MG TABLET PO SCH (10:43)
[2021-03-28] MEDS: ISOSORBIDE MONONITRATE 30 MG TABLET PO SCH (10:43)
[2021-03-28] MEDS: CHOLECALCIFEROL 1,000 UNIT TABLET PO SCH (10:43)
[2021-03-28] MEDS: MULTIVITAMIN (CENTRUM) TABLET PO SCH (10:43)
[2021-03-28] MEDS: PANTOPRAZOLE 40 MG VIAL IV SCH (10:48)
[2021-03-28 12:01] VITALS: BP 162/65
== END 2021-03-28 12:10 | disposition home or self-care (01) | DRG 418 ==
LOC: N.EDINP 16:43 → N.ED 16:43 → N.3E 03-23 08:34
PROVIDERS: ADMIT Family Medicine; ATTEND Family Medicine
PROC: LAPCHOL (2021-03-26 12:23)

== ENCOUNTER 2022-08-08 07:50 | Observation (INO) ==
[2022-08-08] MEDS ORDERED: ASPIRIN 325 MG TABLET PO STA (08:07)
[2022-08-08 08:23] LABS: Basophils % 0.3 % (0.0-0.8); Eosinophils # 0.2 10*3/uL (0.0-0.87); Hematocrit 39.8 VOL% (42.0-52.0); Hemoglobin 13.6 GM/DL (14.0-18.0); Immature Granulocytes % 0.4 %; Immature Granulocytes Absolute 0.03 #; Lymphocytes # 1.7 10*3/uL (1.4-4.0); Mean Corpuscular HGB Conc 34.2 GM/DL (32-36); Mean Corpuscular Volume 91.9 FL (87-102); Mean Platelet Volume 8.7 FL (9.6-12.0); Monocytes # 0.4 10*3/uL (0.11-0.8); Monocytes % 5.1 % (1.7-12.7); Neutrophils % 70.2 % (38.7-73.9); Platelet Count 331 T/CUMM (130-400); Red Blood Count 4.33 MC/CUMM (3.8-5.5); Red Cell Distribution Width 12.9 % (9.3-17.3); White Blood Count 7.9 T/CUMM (4-12)
[2022-08-08] MEDS ORDERED: MORPHINE 10 MG/1 ML VIAL IV STA (08:34)
[2022-08-08] MEDS ORDERED: ONDANSETRON 4 MG/2 ML VIAL IV STA ×2 (08:34→09:32)
[2022-08-08 08:38] LABS: Albumin 4.2 G/DL (3.4-5.0); Bilirubin,Total 0.5 MG/DL (0.20-1.00); Calcium 9.8 MG/DL (8.5-10.1); Osmolality,Calculated 285.3 MOS/KG (273-304); Total Protein 7.2 G/DL (6.4-8.2)
[2022-08-08] MEDS ORDERED: NITROGLYCERIN 2% OINT 1 INCH/GM PACK TOP STA (08:44)
[2022-08-08] MEDS ORDERED: MORPHINE 2 MG/1 ML SYRINGE ONE (08:45)
[2022-08-08] MEDS ORDERED: MORPHINE 2 MG/1 ML SYRINGE IV STA (09:30)
[2022-08-08] MEDS ORDERED: ENOXAPARIN 80 MG/0.8 ML SYRINGE SUBCUT STA (09:31)
[2022-08-08] MEDS ORDERED: ACETAMINOPHEN 325 MG TABLET PO PRN (09:44)
[2022-08-08] MEDS ORDERED: ONDANSETRON 4 MG/2 ML VIAL IV PRN (09:44)
[2022-08-08] MEDS ORDERED: POTASSIUM CHLORIDE RIDER 10 MEQ/100 ML PREMIX IV PRN (10:11)
[2022-08-08] MEDS ORDERED: DIAZEPAM 5 MG TABLET PO ONE (10:11)
[2022-08-08] MEDS ORDERED: MAGNESIUM SULF RIDER 2 GM/50 ML PREMIX IV PRN (10:11)
[2022-08-08] MEDS ORDERED: diphenhydrAMINE CAP 50 MG CAPSULE PO ONE (10:11)
[2022-08-08] MEDS: SODIUM CHLORIDE 0.9% 1,000 ML IV SCH ×2 (10:15→21:56)
[2022-08-08] MEDS ORDERED: fentaNYL 100 MCG/2 ML VIAL ONE (10:30)
[2022-08-08] MEDS ORDERED: MIDAZOLAM 2 MG/2 ML VIAL ONE (10:30)
[2022-08-08] MEDS ORDERED: NITROGLYCERIN SL 0.4 MG TABLET SL PRN (10:37)
[2022-08-08] MEDS ORDERED: diphenhydrAMINE 50 MG/1 ML VIAL ONE (10:43)
[2022-08-08 10:46] LABS: Barbiturates Screen,Urine Negative (Negative); Benzodiazepines Screen,Urine Negative (Negative); Cannabinoid Screen,Urine Negative (Negative); Opiate Screen,Urine Positive (Negative); Phencyclidine Screen,Urine Negative (Negative)
[2022-08-08] MEDS ORDERED: CLOPIDOGREL 75 MG TABLET PO SCH (11:00)
[2022-08-08] MEDS ORDERED: DEXTROSE 10% 250 ML BAG IV PRN (11:24)
[2022-08-08] MEDS ORDERED: GLUCAGON 1 MG VIAL IM PRN (11:24)
[2022-08-08] MEDS ORDERED: ZALEPLON 5 MG CAPSULE PO PRN (11:24)
[2022-08-08] MEDS: INSULIN REGULAR 100 UNIT/ML SUBCUT SCH ×3 (12:40→21:56)
[2022-08-08] MEDS ORDERED: EZETIMIBE 10 MG TABLET PO SCH (21:00)
[2022-08-08] MEDS ORDERED: GLIMEPIRIDE 2 MG TABLET PO SCH (21:00)
[2022-08-08] MEDS ORDERED: DOCUSATE SODIUM 100 MG CAPSULE PO SCH (21:00)
[2022-08-08] MEDS ORDERED: ATORVASTATIN 80 MG TABLET PO SCH (21:00)
[2022-08-09] MEDS: SODIUM CHLORIDE 0.9% 1,000 ML IV SCH (02:55)
[2022-08-09 06:15] LABS: Basophils % 0.3 % (0.0-0.8); Eosinophils # 0.2 10*3/uL (0.0-0.87); Eosinophils % 3.1 % (0.00-10.9); Hematocrit 34.8 VOL% (42.0-52.0); Hemoglobin 11.4 GM/DL (14.0-18.0); Immature Granulocytes % 0.3 %; Immature Granulocytes Absolute 0.02 #; Lymphocytes # 1.9 10*3/uL (1.4-4.0); Mean Corpuscular HGB Conc 32.8 GM/DL (32-36); Mean Corpuscular Volume 94.6 FL (87-102); Mean Platelet Volume 9.2 FL (9.6-12.0); Monocytes # 0.5 10*3/uL (0.11-0.8); Monocytes % 6.6 % (1.7-12.7); Neutrophils % 63.7 % (38.7-73.9); Platelet Count 272 T/CUMM (130-400); Red Blood Count 3.68 MC/CUMM (3.8-5.5); Red Cell Distribution Width 13.1 % (9.3-17.3); White Blood Count 7.5 T/CUMM (4-12)
[2022-08-09 06:36] LABS: Calcium 8.8 MG/DL (8.5-10.1); Potassium 4.2 MMOL/L (3.5-5.1)
[2022-08-09 07:31] VITALS: BP 112/49
[2022-08-09] MEDS: INSULIN REGULAR 100 UNIT/ML SUBCUT SCH (08:58)
[2022-08-09] MEDS ORDERED: MULTIVITAMIN (CENTRUM) TABLET PO SCH (09:00)
[2022-08-09] MEDS ORDERED: ASPIRIN CHEW 81 MG TABLET PO SCH (09:00)
[2022-08-09] MEDS ORDERED: PANTOPRAZOLE 40 MG TABLET PO SCH (09:00)
[2022-08-09] MEDS ORDERED: FENOFIBRATE 145 MG TABLET PO SCH (09:00)
[2022-08-09] MEDS ORDERED: ISOSORBIDE MONONITRATE 30 MG TABLET PO SCH (09:00)
[2022-08-09] MEDS ORDERED: lisinopriL 2.5 MG TABLET PO SCH (09:00)
[2022-08-09] MEDS ORDERED: CHOLECALCIFEROL 1,000 UNIT TABLET PO SCH (09:00)
== END 2022-08-09 09:55 | disposition home or self-care (01) ==
LOC: N.ED 07:50 → N.EDINP 07:50 → N.TELES 10:13
PROVIDERS: ADMIT Family Medicine; ATTEND Family Medicine